=== PATIENT | male | born 1955 | race Two or more races ===

== ENCOUNTER 2019-10-14 17:34 | Inpatient (IN) | payer SELFPAY ==
[~2019-10-14] VITALS: Ht 175.3 cm; Wt 69.9 kg
[2019-10-14] MEDS ORDERED: IV NORMAL SALINE 1000ML BAG 1,000 ML IV SCH (18:57)
[2019-10-14] MEDS ORDERED: PANTOPRAZOLE IV PUSH 40 MG VIAL. IVP ONE (19:00)
[2019-10-14] MEDS ORDERED: ONDANSETRON PF 4 MG/2 ML VIAL. IVP ONE (19:00)
[2019-10-14] MEDS ORDERED: fentaNYL PF VIAL 100 MCG/2 ML VIAL IVP ONE (19:00)
--- NOTE | 2019-10-14 19:06 | PHYS DOC ---
Past Medical History Past Medical History: No Pertinent History Past Surgical History: No Surgical History Smoking Status: Current Every Day Smoker Additional Information: 03/08 PPD Alcohol Use: Sober Additional Information: 2 WEEKS AGO STOPPED DRINKING 16-20 BEERS A DAY General Adult EDM: Chief Complaint: ABDOMINAL PAIN HPI: HPI: Patient is a 64 year old male who presents with daughter who states that he just moved in with her on this past . She states that she has not seen him for a while and he looks very skinny. She states that he does not ever go to the doctors and she asked him today to bring him to the hospital because he hurts all over and has abdominal pain. She states that he is also having shortness of air with exertion. Patient states when he is walking up her stairs or with walking to the car he was short of air. He drinks 15 or more tall boys a day. He has done this since he was 19 years old. He is a smoker and he does use drugs. Daughter states that she thinks he does cocaine and marijuana. Patient states he has a lack of appetite and has generalized body aches. When asked the quality of his abdominal pain he states " it just hurts". Patient rates his overall pain a 9 out of 10. He denies vomiting but states he is nauseous, headache, dizziness, syncope, chest pain, vision changes, numbness or tingling, focal weakness. He is ambulatory with a steady gait. Review of Systems: Review of Systems: Constitutional: Denies fever or chills. [] Eyes: Denies change in visual acuity. [] HENT: Denies nasal congestion or sore throat. [] Respiratory: Denies cough. +shortness of breath. [] Cardiovascular: Denies chest pain or edema. [] GI: generalized abdominal pain, nausea, vomiting, denies bloody stools or diarrhea. [] : Denies dysuria. [] Musculoskeletal: Denies back pain or joint pain. [] Integument: Denies rash. [] Neurologic: Denies headache, focal weakness or sensory changes. [] Endocrine: Denies polyuria or polydipsia. [] Lymphatic: Denies swollen glands. [] Psychiatric: Denies depression or anxiety. ETOH abuse [] Heart Score: Risk Factors: Risk Factors: DM, Current or recent (<one month) smoker, HTN, HLP, family history of CAD, obesity. Risk Scores: Score 0 - 3: 2.5% MACE over next 6 weeks - Discharge Home Score 4 - 6: 20.3% MACE over next 6 weeks - Admit for Clinical Observation Score 7 - 10: 72.7% MACE over next 6 weeks - Early Invasive Strategies Physical Exam: PE: Constitutional: Well developed, well nourished, no acute distress, non-toxic appearance. [] HENT: Normocephalic, atraumatic, bilateral external ears normal, oropharynx moist, no oral exudates, nose normal. [] Eyes: PERRLA, EOMI, conjunctiva yellow, no discharge. [] Neck: Normal range of motion, no tenderness, supple, no stridor. [] Cardiovascular:Heart rate regular rhythm, no murmur [] Lungs & Thorax: Bilateral breath sounds clear to auscultation [] Abdomen: Bowel sounds normal, tight, no tenderness, no masses, no pulsatile masses. [] Skin: Warm, dry, no erythema, no rash. [] Back: No tenderness, no CVA tenderness. [] Extremities: No tenderness, no cyanosis, no clubbing, ROM intact, no edema. [] Neurologic: Alert and oriented X 3, normal motor function, normal sensory function, no focal deficits noted. [] Psychologic: Affect normal, judgement normal, mood normal. [] Current Patient Data: Vital Signs: Vital Signs Date Time Temp Pulse Resp B/P (MAP) Pulse Ox O2 Delivery O2 Flow Rate FiO2 10/14/19 18:20 98.1 85 20 110/77 (88) 100 98.1 EKG: EK and read by Dr Whitney as Sinus Rhythm and no STEMI[] Radiology/Procedures: Radiology/Procedures: [][facility] [address] [place] [address] IMAGING REPORT Signed PATIENT: MELLO HARGROVE ACCOUNT: [id number] : 1955 LOCATION: ER AGE: 64 SEX: M EXAM STATUS: REG ER ORD. PHYSICIAN: JESICA MENJIVAR APRN REASON: ABD PAIN, ETOH ABUSE PROCEDURE: CT ABD PELV W/ IV CONTRST ONLY EXAM: CT Abdomen and Pelvis with IV contrast CLINICAL HISTORY: ABD PAIN, ETOH ABUSE COMPARISON: none TECHNIQUE: Helical CT of the abdomen and pelvis was performed following the administration of IV contrast. Axial, coronal and sagittal reformatted images were generated. ---PQRS compliance statement - One or more of the following individualized dose reduction techniques were utilized for this study: 1. Automated exposure control 2. Adjustment of the mA and/or kV according to patient size 3. Use of iterative reconstruction technique--- FINDINGS: Lower chest: Linear opacities in the lower lobes likely scarring/atelectasis. Abdomen and pelvis: Liver and biliary system: Relative hepatic hypoattenuation likely fatty liver. A 1.3 x 0.6 cm left hepatic lobe lesion (image 19) is seen. Liver is mildly nodular in contour with enlargement of the left hepatic lobe consistent with hepatic cirrhosis. Gallbladder is grossly unremarkable. No biliary ductal dilatation. Spleen: Spleen is enlarged measuring approximately 14.5 cm in length. No focal splenic lesion. Pancreas: Unremarkable Adrenal glands: Unremarkable Kidneys: Symmetric nephrograms. No definite renal lesion is seen although there is intermittent renal cortical/thinning scarring in the right kidney. There is marked left hydronephrosis/hydroureter and mild right hydronephrosis/hydroureter. Lymph nodes/retroperitoneum: No abdominal or pelvic lymphadenopathy however prominent retroperitoneal lymph nodes are seen. Mildly prominent upper abdominal collaterals are suggested. Vessels: Atherosclerotic calcifications of aorta are seen, which is normal in caliber. Bowel/Peritoneal cavity: Moderate colonic stool content. No small or large bowel dilatation. No bowel obstruction. No abdominal or pelvic ascites. Abdominal wall: Fat-containing periumbilical hernia with mild associated infiltration. Bladder: The bladder is markedly distended, measuring approximately 18.7 x 13 x 23.5 cm (transverse by AP by craniocaudal). Mild irregularity at the inferior bladder likely from enlarged prostate measuring approximately 5.2 cm in transverse dimension. Bones: Trace anterolisthesis of L4 on L5. Multilevel degenerative changes of spine are seen. IMPRESSION: The bladder is markedly enlarged measuring up to 23.5 cm in craniocaudal dimension. This can be correlated for possible voluntary or involuntary causes of urinary retention. Additionally there is bilateral hydronephrosis, severe on the left. Small fat-containing periumbilical hernia is seen. Mild associated infiltration may suggest symptomatic hernia. Liver is cirrhotic in morphology with changes of portal hypertension including splenomegaly. Electronically signed by: Chris Solis MD (10/14/2019 8:13 PM) [facility] DICTATED and SIGNED BY: CHRIS SOLIS MD DATE: 10/14/192012 [facility] [address] [place] [address] IMAGING REPORT Signed PATIENT: MELLO HARGROVE ACCOUNT: [id number] : 1955 LOCATION: ER AGE: 64 SEX: M EXAM STATUS: REG ER ORD. PHYSICIAN: JESICA MENJIVAR APRN REASON: SOA PROCEDURE: PORTABLE CHEST 1V Exam: Chest one view INDICATION: Short of air TECHNIQUE: Frontal view of the chest Comparisons: None FINDINGS: The cardiomediastinal silhouette and pulmonary vessels are within normal limits. The lung and pleural spaces are clear. IMPRESSION: No acute cardiopulmonary process. Electronically signed by: Cass Saucedo MD (10/14/2019 7:22 PM) [id number] DICTATED and SIGNED BY: CASS SAUCEDO MD DATE: 10/14/191921 Course & Med Decision Making: Course & Med Decision Making Pertinent Labs and Imaging studies reviewed. (See chart for details) See HPI. Abdomen is tight but nontender with palpation. He does have an umbilical hernia that is hard and I cannot reduce. Lungs are clear in upper lobes but diminished in lower lobes. He is afebrile. He does seem to have tremors when moving his extremities only. He is alert and oriented x4. Speaks in full clear sentences. He does have yellowing of the sclera of his eyes. Patient states his last drink was this past . No extremity edema. Patient has pancreatitis and urinary tract infection. Given Rocephin IV. He is admitted to the hospital by Dr. Rocha. [] Marya Disclaimer: Marya Disclaimer: This electronic medical record was generated, in whole or in part, using a voice recognition dictation system. Departure Departure Impression: Primary Impression: Pancreatitis Qualified Codes: K85.20 - Alcohol induced acute pancreatitis without necrosis or infection Additional Impression: UTI (urinary tract infection) Qualified Codes: N30.00 - Acute cystitis without hematuria Disposition: ADMITTED INPATIENT Admitting Physician: SUZAN Condition: STABLE Referrals: NO PCP (PCP) Justicifation of Admission Dx: Justifications for Admission: Justification of Admission Dx: Yes Comments: pancreatitis JESICA MENJIVAR APRN Oct 14, 2019 19:06
[2019-10-14 19:15] LABS: BASO # 0.1 x10^3/uL (0.0-0.2); BASO % 1 % (0-3); EOS # 0.2 x10^3/uL (0.0-0.7); EOS % 2 % (0-3); HEMATOCRIT 42.1 % (39.0-53.0); HEMOGLOBIN 14.3 g/dL (13.0-17.5); LYMPH # 1.4 x10^3/uL (1.0-4.8); LYMPH % 12 % (24-48); MEAN CORPUSCULAR HEMOGLOBIN 32 pg (25-35); MEAN CORPUSCULAR HGB CONC 34 g/dL (31-37); MEAN CORPUSCULAR VOLUME 94 fL (79-100); MONO # 1.3 x10^3/uL (0.0-1.1); MONO % 12 % (0-9); NEUT # 8.2 x10^3/uL (1.8-7.7); NEUT % 73 % (31-73); PLATELET COUNT 113 x10^3/uL (140-400); RED BLOOD COUNT 4.46 x10^6/uL (4.30-5.70); RED CELL DISTRIBUTION WIDTH 15.7 % (11.5-14.5); WHITE BLOOD COUNT 11.2 x10^3/uL (4.0-11.0)
[2019-10-14 19:24] LABS: PROTHROMBIN TIME PATIENT 15.5 SEC (11.7-14.0)
--- NOTE | 2019-10-14 19:24 | RAD ---
Exam: Chest one view INDICATION: Short of air TECHNIQUE: Frontal view of the chest Comparisons: None FINDINGS: The cardiomediastinal silhouette and pulmonary vessels are within normal limits. The lung and pleural spaces are clear. IMPRESSION: No acute cardiopulmonary process. Electronically signed by: Cass Herring MD (10/14/2019 7:22 PM) [id number]
[2019-10-14 19:29] LABS: CALCIUM 8.9 mg/dL (8.5-10.1); GFR 75.7; POTASSIUM 5.4 mmol/L (3.5-5.1)
[2019-10-14 19:34] LABS: ALBUMIN 2.5 g/dL (3.4-5.0); ALBUMIN/GLOBULIN RATIO 0.5 (1.0-1.7); TOTAL BILIRUBIN 1.5 mg/dL (0.2-1.0); TOTAL PROTEIN 7.4 g/dL (6.4-8.2)
[2019-10-14] MEDS ORDERED: IOHEXOL 300 MG/ML 100ML VIAL. IV ONE (19:45)
[2019-10-14] MEDS ORDERED: CONTRAST GIVEN. MC PRN (20:00)
[2019-10-14 20:15] LABS: BILIRUBIN,URINE NEGATIVE (NEG); CLARITY,URINE CLOUDY; COLOR,URINE YELLOW; NITRITE,URINE NEGATIVE (NEG); PROTEIN,URINE NEGATIVE (NEG-TRACE); UROBILINOGEN,URINE 0.2 mg/dL (0.2 mg/dL)
--- NOTE | 2019-10-14 20:16 | RAD ---
EXAM: CT Abdomen and Pelvis with IV contrast CLINICAL HISTORY: ABD PAIN, ETOH ABUSE COMPARISON: none TECHNIQUE: Helical CT of the abdomen and pelvis was performed following the administration of IV contrast. Axial, coronal and sagittal reformatted images were generated. ---PQRS compliance statement - One or more of the following individualized dose reduction techniques were utilized for this study: 1. Automated exposure control 2. Adjustment of the mA and/or kV according to patient size 3. Use of iterative reconstruction technique--- FINDINGS: Lower chest: Linear opacities in the lower lobes likely scarring/atelectasis. Abdomen and pelvis: Liver and biliary system: Relative hepatic hypoattenuation likely fatty liver. A 1.3 x 0.6 cm left hepatic lobe lesion (image 19) is seen. Liver is mildly nodular in contour with enlargement of the left hepatic lobe consistent with hepatic cirrhosis. Gallbladder is grossly unremarkable. No biliary ductal dilatation. Spleen: Spleen is enlarged measuring approximately 14.5 cm in length. No focal splenic lesion. Pancreas: Unremarkable Adrenal glands: Unremarkable Kidneys: Symmetric nephrograms. No definite renal lesion is seen although there is intermittent renal cortical/thinning scarring in the right kidney. There is marked left hydronephrosis/hydroureter and mild right hydronephrosis/hydroureter. Lymph nodes/retroperitoneum: No abdominal or pelvic lymphadenopathy however prominent retroperitoneal lymph nodes are seen. Mildly prominent upper abdominal collaterals are suggested. Vessels: Atherosclerotic calcifications of aorta are seen, which is normal in caliber. Bowel/Peritoneal cavity: Moderate colonic stool content. No small or large bowel dilatation. No bowel obstruction. No abdominal or pelvic ascites. Abdominal wall: Fat-containing periumbilical hernia with mild associated infiltration. Bladder: The bladder is markedly distended, measuring approximately 18.7 x 13 x 23.5 cm (transverse by AP by craniocaudal). Mild irregularity at the inferior bladder likely from enlarged prostate measuring approximately 5.2 cm in transverse dimension. Bones: Trace anterolisthesis of L4 on L5. Multilevel degenerative changes of spine are seen. IMPRESSION: The bladder is markedly enlarged measuring up to 23.5 cm in craniocaudal dimension. This can be correlated for possible voluntary or involuntary causes of urinary retention. Additionally there is bilateral hydronephrosis, severe on the left. Small fat-containing periumbilical hernia is seen. Mild associated infiltration may suggest symptomatic hernia. Liver is cirrhotic in morphology with changes of portal hypertension including splenomegaly. Electronically signed by: Chris Rivera MD (10/14/2019 8:13 PM) [facility]AN
[2019-10-14 20:23] LABS: BACTERIA,URINE MANY /HPF (0-FEW); RBC,URINE 0 /HPF (0-2); SQUAMOUS EPITHELIAL CELL,UR FEW /LPF; WBC,URINE TNTC /HPF (0-4)
[2019-10-14 20:24] LABS: YEAST,URINE PRESENT /HPF
[2019-10-14 20:27] LABS: AMPHETAMINE/METHAMPHETAMINE NEG (NEG); BARBITURATES NEG (NEG); BENZODIAZEPINES NEG (NEG); CANNABINOIDS NEG (NEG); COCAINE NEG (NEG); METHADONE NEG (NEG); OPIATES NEG (NEG); PHENCYCLIDINE NEG (NEG)
[2019-10-14] MEDS ORDERED: cefTRIAXone IV Push 1 GM VIAL. IVP ONE (20:45)
[2019-10-14] MEDS ORDERED: ONDANSETRON PF 4 MG/2 ML VIAL. IV PRN (21:45)
[2019-10-14] MEDS: fentaNYL PF VIAL 100 MCG/2 ML VIAL IV PRN ×2 (21:55→22:52)
[2019-10-14] MEDS: IV NORMAL SALINE 1000ML BAG 1,000 ML IV SCH (21:56)
--- NOTE | 2019-10-14 23:45 | NUR ---
The patient, MELLO HARGROVE, 64 y/o, M admitted by VICKY DONALDSON III, DO, was given written information regarding hospital policies, unit procedures and contact persons. patient transferred to room 256 at this time. patient was transferred by ED staff member on an ED bed. Valuables were checked and noted. Patient denies any needs at this time. Dr. De Los Santos called due to COVID symptoms and recent travel from [place], orders to transfer to [address] [place] [address] and test for COVID.
[2019-10-15] VITALS: BP 114/81
[2019-10-15 03:00] VITALS: BP 99/71
[2019-10-15] MEDS: IV NORMAL SALINE 1000ML BAG 1,000 ML IV SCH (04:29)
--- NOTE | 2019-10-15 04:44 | EKG ---
[facility] [address] [place] [address] Test Date: 2019-10-14 Test Time: 19:04:13 Pat Name: MELLO HARGROVE Department: Room: Gender: M [employer]ician: : 1955 Requested By: JESICA MENJIVAR Order Number: [id number] Reading MD: Measurements Intervals [place] Rate: 78 P: 50 [place]: 150 QRS: 1 QRSD: 70 T: 7 QT: 372 QTc: 428 Interpretive Statements SINUS RHYTHM LOW LIMB LEAD VOLTAGE NO SPECIFIC ECG ABNORMALITIES RI6.01 No previous ECG available for comparison
[2019-10-15 07:00] VITALS: BP 127/85
[2019-10-15] MEDS ORDERED: CIPR500T94 PO (08:50)
--- NOTE | 2019-10-15 08:55 | PDOC1 ---
History and Physical Date of Admission Date of Admission DATE: 10/15/19 TIME: 08:50 Source Source: Chart review, Patient History of Present Illness History of Present Illness Mr. Sorensen, is a 64 year old male admit with leg pain and abd pain, new weakness over days. He has severe pain last night, and he hurts all over and has abdominal pain. pain was 9/10 last night, better this AM. maybe 5/10 he was short of breath last night, better this AM he usualy drinks about 20 beers a day, stopped recently due to abd pain,. He is a smoker and may use drugs, UDS was negative, . Daughter told the ER, that she thinks he does cocaine and marijuana. Patient states he has a lack of appetite and has generalized body aches. he could walk last night and is better this AM Past Medical History Cardiovascular: No pertinent hx Pulmonary: No pertinent hx GI: No pertinent hx Psych: Other (alcohol abuse) Renal/: No pertinent hx Endocrine: No pertinent hx Past Surgical History Past Surgical History: No pertinent history Family History Family History: No Significant Social History Smoke: No ALCOHOL: heavy Drugs: None Current Problem List Problem List Problems Medical Problems: (1) Pancreatitis Status: Acute (2) UTI (urinary tract infection) Status: Acute Current Medications Current Medications Current Medications Sodium Chloride 1,000 ml @ 1,000 mls/hr Q1H IV Last administered on 10/14/19 19:35; Start 10/14/19 at 18:57; Stop 10/14/19 at 19:56; Status DC Fentanyl Citrate (Fentanyl 2ml Vial) 50 mcg 1X ONCE IVP Last administered on 10/14/19at 19:36; Start 10/14/19 at 19:00; Stop 10/14/19 at 19:27; Status DC Ondansetron HCl (Zofran) 4 mg 1X ONCE IVP Last administered on 10/14/19at 19:36; Start 10/14/19 at 19:00; Stop 10/14/19 at 19:27; Status DC Pantoprazole Sodium (PROTONIX VIAL for IV PUSH) 40 mg 1X ONCE IVP Last administered on 10/14/19at 19:35; Start 10/14/19 at 19:00; Stop 10/14/19 at 19:27; Status DC Iohexol (Omnipaque 300 Mg/ml) 75 ml 1X ONCE IV Last administered on 10/14/19at 19:53; Start 10/14/19 at 19:45; Stop 10/14/19 at 19:47; Status DC Info (CONTRAST GIVEN -- Rx MONITORING) 1 each PRN DAILY PRN MC SEE COMMENTS; Start 10/14/19 at 20:00; Stop 10/16/19 at 19:59 Ceftriaxone Sodium (Rocephin) 1 gm 1X ONCE IVP Last administered on 10/14/19at 20:51; Start 10/14/19 at 20:45; Stop 10/14/19 at 20:46; Status DC Ondansetron HCl (Zofran) 4 mg PRN Q8HRS PRN IV NAUSEA/VOMITING; Start 10/14/19 at 21:45; Stop 10/15/19 at 21:44 Fentanyl Citrate (Fentanyl 2ml Vial) 50 mcg PRN Q1HR PRN IV PAIN Last administered on 10/14/19at 22:52; Start 10/14/19 at 21:45; Stop 10/15/19 at 21:44 Sodium Chloride 1,000 ml @ 150 mls/hr Q6H40M IV Last administered on 10/15/19at 04:29; Start 10/14/19 at 21:45; Stop 10/15/19 at 21:44 Allergies Allergies: Coded Allergies: No Known Drug Allergies (Unverified , 10/14/19) ROS General: No: Chills, Night Sweats, Fatigue, Malaise, Appetite, Other PSYCHOLOGICAL ROS: No: Anxiety, Behavioral Disorder, Concentration difficultie, Decreased libido, Depression, Disorientation, Hallucinations, Hostility, Irritablity, Memory difficulties, Mood Swings, Obsessive thoughts, Physical abuse, Sexual abuse, Sleep disturbances, Suicidal ideation, Other Eyes: No Blurry vision, No Decreased vision, No Double vision, No Dry eyes, No Excessive tearing, No Eye Pain, No Itchy Eyes, No Loss of vision, No Photophobia, No Scotomata, No Uses contacts, No Uses glasses, No Other Respiratory: No: Cough, Hemoptysis, Orthopnea, Pleuritic Pain, Shortness of breath, SOB with excertion, Sputum Changes, Stridor, Tachypnea, Wheezing, Other Cardiovascular: No Chest Pain, No Palpitations, No Orthopnea, No Paroxysmal Noc. Dyspnea, No Edema, No Lt Headedness, No Other Gastrointestinal: Yes Nausea, Yes Abdominal Pain Genitourinary: No Dysuria, No Frequency, No Incontinence, No Hematuria, No Retention, No Discharge, No Urgency, No Pain, No Flank Pain, No Other, No , No , No , No , No , No , No Musculoskeletal: Yes Joint Pain, Yes Joint Stiffness Neurological: No Behavorial Changes, No Bowel/Bladder ControlChng, No Confusion, No Dizziness, No Gait Disturbance, No Headaches, No Impaired Coord/balance, No Memory Loss, No Numbness/Tingling, No Seizures, No Speech Problems, No Tremors, No Visual Changes, No Weakness, No Other Skin: Yes Dry Skin; No Eczema, No Hair Changes, No Lumps, No Mole Changes, No Mottling, No Nail Changes, No Pruritus, No Rash, No Skin Lesion Changes, No Other, No Acne Physical Exam General: Alert, Cooperative, No acute distress HEENT: Atraumatic, PERRLA Lungs: Clear to auscultation Heart: RRR Abdomen: Normal bowel sounds, Other (firm hernnia vental, surg consult able to reduce.) Extremities: No edema, Normal pulses Skin: No rashes Neuro: Sensation intact Psych/Mental Status: Mental status NL, Mood NL Vitals Vitals Vital Signs Date Time Temp Pulse Resp B/P (MAP) Pulse Ox O2 Delivery O2 Flow Rate FiO2 10/15/19 03:00 99.9 74 22 99/71 (80) 96 Room Air 99.9 Labs Labs Laboratory Tests Test 10/14/19 18:50 10/14/19 20:05 White Blood Count 11.2 x10^3/uL (4.0-11.0) Red Blood Count 4.46 x10^6/uL (4.30-5.70) Hemoglobin 14.3 g/dL (13.0-17.5) Hematocrit 42.1 % (39.0-53.0) Mean Corpuscular Volume 94 fL (79-100) Mean Corpuscular Hemoglobin 32 pg (25-35) Mean Corpuscular Hemoglobin Concent 34 g/dL (31-37) Red Cell Distribution Width 15.7 % (11.5-14.5) Platelet Count 113 x10^3/uL (140-400) Neutrophils (%) (Auto) 73 % (31-73) Lymphocytes (%) (Auto) 12 % (24-48) Monocytes (%) (Auto) 12 % (0-9) Eosinophils (%) (Auto) 2 % (0-3) Basophils (%) (Auto) 1 % (0-3) Neutrophils # (Auto) 8.2 x10^3/uL (1.8-7.7) Lymphocytes # (Auto) 1.4 x10^3/uL (1.0-4.8) Monocytes # (Auto) 1.3 x10^3/uL (0.0-1.1) Eosinophils # (Auto) 0.2 x10^3/uL (0.0-0.7) Basophils # (Auto) 0.1 x10^3/uL (0.0-0.2) Prothrombin Time 15.5 SEC (11.7-14.0) Prothromb Time International Ratio 1.3 (0.8-1.1) Sodium Level 137 mmol/L (136-145) Potassium Level 5.4 mmol/L (3.5-5.1) Chloride Level 102 mmol/L (98-107) Carbon Dioxide Level 31 mmol/L (21-32) Anion Gap 4 (6-14) Blood Urea Nitrogen 10 mg/dL (8-26) Creatinine 1.0 mg/dL (0.7-1.3) Estimated GFR (Cockcroft-Gault) 75.7 BUN/Creatinine Ratio 10 (6-20) Glucose Level 90 mg/dL (70-99) Calcium Level 8.9 mg/dL (8.5-10.1) Total Bilirubin 1.5 mg/dL (0.2-1.0) Aspartate Amino Transf (AST/SGOT) 52 U/L (15-37) Alanine Aminotransferase (ALT/SGPT) 58 U/L (16-63) Alkaline Phosphatase 123 U/L (46-116) Troponin I Quantitative < 0.017 ng/mL (0.000-0.055) Total Protein 7.4 g/dL (6.4-8.2) Albumin 2.5 g/dL (3.4-5.0) Albumin/Globulin Ratio 0.5 (1.0-1.7) Lipase 567 U/L (73-393) Urine Collection Type Unknown Urine Color Yellow Urine Clarity Cloudy Urine pH 6.0 (<5.0-8.0) Urine Specific [place] <=1.005 (1.000-1.030) Urine Protein Negative mg/dL (NEG-TRACE) Urine Glucose (UA) Negative mg/dL (NEG) Urine Ketones (Stick) Negative mg/dL (NEG) Urine Blood Trace (NEG) Urine Nitrite Negative (NEG) Urine Bilirubin Negative (NEG) Urine Urobilinogen Dipstick 0.2 mg/dL (0.2 mg/dL) Urine Leukocyte Esterase Large (NEG) Urine RBC 0 /HPF (0-2) Urine WBC Tntc /HPF (0-4) Urine Squamous Epithelial Cells Few /LPF Urine Bacteria Many /HPF (0-FEW) Urine Mucus Slight /LPF Urine Yeast Present /HPF Urine Opiates Screen Neg (NEG) Urine Methadone Screen Neg (NEG) Urine Barbiturates Neg (NEG) Urine Phencyclidine Screen Neg (NEG) Urine Amphetamine/Methamphetamine Neg (NEG) Urine Benzodiazepines Screen Neg (NEG) Urine Cocaine Screen Neg (NEG) Urine Cannabinoids Screen Neg (NEG) Urine Ethyl Alcohol Neg (NEG) Laboratory Tests Test 10/14/19 18:50 10/14/19 20:05 White Blood Count 11.2 x10^3/uL (4.0-11.0) Red Blood Count 4.46 x10^6/uL (4.30-5.70) Hemoglobin 14.3 g/dL (13.0-17.5) Hematocrit 42.1 % (39.0-53.0) Mean Corpuscular Volume 94 fL (79-100) Mean Corpuscular Hemoglobin 32 pg (25-35) Mean Corpuscular Hemoglobin Concent 34 g/dL (31-37) Red Cell Distribution Width 15.7 % (11.5-14.5) Platelet Count 113 x10^3/uL (140-400) Neutrophils (%) (Auto) 73 % (31-73) Lymphocytes (%) (Auto) 12 % (24-48) Monocytes (%) (Auto) 12 % (0-9) Eosinophils (%) (Auto) 2 % (0-3) Basophils (%) (Auto) 1 % (0-3) Neutrophils # (Auto) 8.2 x10^3/uL (1.8-7.7) Lymphocytes # (Auto) 1.4 x10^3/uL (1.0-4.8) Monocytes # (Auto) 1.3 x10^3/uL (0.0-1.1) Eosinophils # (Auto) 0.2 x10^3/uL (0.0-0.7) Basophils # (Auto) 0.1 x10^3/uL (0.0-0.2) Prothrombin Time 15.5 SEC (11.7-14.0) Prothromb Time International Ratio 1.3 (0.8-1.1) Sodium Level 137 mmol/L (136-145) Potassium Level 5.4 mmol/L (3.5-5.1) Chloride Level 102 mmol/L (98-107) Carbon Dioxide Level 31 mmol/L (21-32) Anion Gap 4 (6-14) Blood Urea Nitrogen 10 mg/dL (8-26) Creatinine 1.0 mg/dL (0.7-1.3) Estimated GFR (Cockcroft-Gault) 75.7 BUN/Creatinine Ratio 10 (6-20) Glucose Level 90 mg/dL (70-99) Calcium Level 8.9 mg/dL (8.5-10.1) Total Bilirubin 1.5 mg/dL (0.2-1.0) Aspartate Amino Transf (AST/SGOT) 52 U/L (15-37) Alanine Aminotransferase (ALT/SGPT) 58 U/L (16-63) Alkaline Phosphatase 123 U/L (46-116) Troponin I Quantitative < 0.017 ng/mL (0.000-0.055) Total Protein 7.4 g/dL (6.4-8.2) Albumin 2.5 g/dL (3.4-5.0) Albumin/Globulin Ratio 0.5 (1.0-1.7) Lipase 567 U/L (73-393) Urine Collection Type Unknown Urine Color Yellow Urine Clarity Cloudy Urine pH 6.0 (<5.0-8.0) Urine Specific [place] <=1.005 (1.000-1.030) Urine Protein Negative mg/dL (NEG-TRACE) Urine Glucose (UA) Negative mg/dL (NEG) Urine Ketones (Stick) Negative mg/dL (NEG) Urine Blood Trace (NEG) Urine Nitrite Negative (NEG) Urine Bilirubin Negative (NEG) Urine Urobilinogen Dipstick 0.2 mg/dL (0.2 mg/dL) Urine Leukocyte Esterase Large (NEG) Urine RBC 0 /HPF (0-2) Urine WBC Tntc /HPF (0-4) Urine Squamous Epithelial Cells Few /LPF Urine Bacteria Many /HPF (0-FEW) Urine Mucus Slight /LPF Urine Yeast Present /HPF Urine Opiates Screen Neg (NEG) Urine Methadone Screen Neg (NEG) Urine Barbiturates Neg (NEG) Urine Phencyclidine Screen Neg (NEG) Urine Amphetamine/Methamphetamine Neg (NEG) Urine Benzodiazepines Screen Neg (NEG) Urine Cocaine Screen Neg (NEG) Urine Cannabinoids Screen Neg (NEG) Urine Ethyl Alcohol Neg (NEG) VTE Prophylaxis Ordered VTE Prophylaxis Devices: No VTE Pharmacological Prophylaxi: No Assessment/Plan Assessment/Plan acute abdominal pain, acute on chronic alcoholic pancreatitis, 45 years of alcohol abuse disorder, has now quit due to pain UTI, sepsis admit for R/o COVID to [facility] covid unit, pt seen in full PPE felt better in AM, no hypoxia, will DC [place] TATO KUMAR MD Oct 15, 2019 08:55
--- NOTE | 2019-10-15 08:56 | PDOC2 ---
CONSULT Date of Consult Date of Consult DATE: 10/15/19 TIME: 08:49 Reason for Consult Reason for Consult: abdominal pain Referring Physician Referring Physician: ER Identification/Chief Complaint Chief Complaint abdominal pain Source Source: Chart review, Patient History of Present Illness Reason for Visit: Welsh limited, family not present, in covid pending isolation Reports some abdominal pain this AM, no nausea or emesis From ER notes, weakness, SOA at home Heavy alcohol intake , ? drug use, + smoker Past Medical History Hepatobiliary: Cirrhosis Past Surgical History Past Surgical History: No pertinent history Family History Family History: Family History Unknown Social History <1 pack per day ALCOHOL: heavy Drugs: Other Current Problem List Problem List Problems Medical Problems: (1) Pancreatitis Status: Acute (2) UTI (urinary tract infection) Status: Acute Current Medications Current Medications Current Medications Sodium Chloride 1,000 ml @ 1,000 mls/hr Q1H IV Last administered on 10/14/19at 19:35; Start 10/14/19 at 18:57; Stop 10/14/19 at 19:56; Status DC Fentanyl Citrate (Fentanyl 2ml Vial) 50 mcg 1X ONCE IVP Last administered on 10/14/19at 19:36; Start 10/14/19 at 19:00; Stop 10/14/19 at 19:27; Status DC Ondansetron HCl (Zofran) 4 mg 1X ONCE IVP Last administered on 10/14/19at 19:36; Start 10/14/19 at 19:00; Stop 10/14/19 at 19:27; Status DC Pantoprazole Sodium (PROTONIX VIAL for IV PUSH) 40 mg 1X ONCE IVP Last administered on 10/14/19at 19:35; Start 10/14/19 at 19:00; Stop 10/14/19 at 19:27; Status DC Iohexol (Omnipaque 300 Mg/ml) 75 ml 1X ONCE IV Last administered on 10/14/19at 19:53; Start 10/14/19 at 19:45; Stop 10/14/19 at 19:47; Status DC Info (CONTRAST GIVEN -- Rx MONITORING) 1 each PRN DAILY PRN MC SEE COMMENTS; Start 10/14/19 at 20:00; Stop 10/16/19 at 19:59 Ceftriaxone Sodium (Rocephin) 1 gm 1X ONCE IVP Last administered on 10/14/19at 20:51; Start 10/14/19 at 20:45; Stop 10/14/19 at 20:46; Status DC Ondansetron HCl (Zofran) 4 mg PRN Q8HRS PRN IV NAUSEA/VOMITING; Start 10/14/19 at 21:45; Stop 10/15/19 at 21:44 Fentanyl Citrate (Fentanyl 2ml Vial) 50 mcg PRN Q1HR PRN IV PAIN Last administered on 10/14/19at 22:52; Start 10/14/19 at 21:45; Stop 10/15/19 at 21:44 Sodium Chloride 1,000 ml @ 150 mls/hr Q6H40M IV Last administered on 10/15/19at 04:29; Start 10/14/19 at 21:45; Stop 10/15/19 at 21:44 Ceftriaxone Sodium (Rocephin) 1 gm Q24H IVP ; Start 10/15/19 at 09:00 Allergies Allergies: Coded Allergies: No Known Drug Allergies (Unverified , 10/14/19) ROS General: No: Chills, Other (fevers ) PSYCHOLOGICAL ROS: No: Anxiety, Depression Eyes: No Blurry vision, No Double vision HEENT: No: Heacaches, Sore Throat Hematological and Lymphatic: No: Bleeding Problems, Blood Clots Respiratory: YES: Shortness of breath; No: Cough Cardiovascular: No Chest Pain, No Palpitations Gastrointestinal: Yes Other (see hpi) Genitourinary: No Dysuria, No Hematuria Musculoskeletal: Yes Muscular Weakness; No Joint Pain Neurological: No Impaired Coord/balance, No Numbness/Tingling Skin: No Pruritus, No Rash Physical Exam General: Alert, Oriented X3, Cooperative HEENT: Atraumatic, PERRLA Lungs: Clear to auscultation, Normal air movement Heart: Regular rate, Normal S1, Normal S2 Abdomen: Soft, Other (mild ttp LUQ, umbilical--palpable hernia periumbilical, easily reducible ) Extremities: No clubbing, No cyanosis Skin: No rashes, No breakdown Neuro: Normal speech, Sensation intact Psych/Mental Status: Mental status NL, Mood NL MUSCULOSKELETAL: No deformity, No swelling Vitals VITALS Vital Signs Date Time Temp Pulse Resp B/P (MAP) Pulse Ox O2 Delivery O2 Flow Rate FiO2 10/15/19 03:00 99.9 74 22 99/71 (80) 96 Room Air 99.9 Labs Labs Laboratory Tests Test 10/14/19 18:50 10/14/19 20:05 White Blood Count 11.2 x10^3/uL (4.0-11.0) Red Blood Count 4.46 x10^6/uL (4.30-5.70) Hemoglobin 14.3 g/dL (13.0-17.5) Hematocrit 42.1 % (39.0-53.0) Mean Corpuscular Volume 94 fL (79-100) Mean Corpuscular Hemoglobin 32 pg (25-35) Mean Corpuscular Hemoglobin Concent 34 g/dL (31-37) Red Cell Distribution Width 15.7 % (11.5-14.5) Platelet Count 113 x10^3/uL (140-400) Neutrophils (%) (Auto) 73 % (31-73) Lymphocytes (%) (Auto) 12 % (24-48) Monocytes (%) (Auto) 12 % (0-9) Eosinophils (%) (Auto) 2 % (0-3) Basophils (%) (Auto) 1 % (0-3) Neutrophils # (Auto) 8.2 x10^3/uL (1.8-7.7) Lymphocytes # (Auto) 1.4 x10^3/uL (1.0-4.8) Monocytes # (Auto) 1.3 x10^3/uL (0.0-1.1) Eosinophils # (Auto) 0.2 x10^3/uL (0.0-0.7) Basophils # (Auto) 0.1 x10^3/uL (0.0-0.2) Prothrombin Time 15.5 SEC (11.7-14.0) Prothromb Time International Ratio 1.3 (0.8-1.1) Sodium Level 137 mmol/L (136-145) Potassium Level 5.4 mmol/L (3.5-5.1) Chloride Level 102 mmol/L (98-107) Carbon Dioxide Level 31 mmol/L (21-32) Anion Gap 4 (6-14) Blood Urea Nitrogen 10 mg/dL (8-26) Creatinine 1.0 mg/dL (0.7-1.3) Estimated GFR (Cockcroft-Gault) 75.7 BUN/Creatinine Ratio 10 (6-20) Glucose Level 90 mg/dL (70-99) Calcium Level 8.9 mg/dL (8.5-10.1) Total Bilirubin 1.5 mg/dL (0.2-1.0) Aspartate Amino Transf (AST/SGOT) 52 U/L (15-37) Alanine Aminotransferase (ALT/SGPT) 58 U/L (16-63) Alkaline Phosphatase 123 U/L (46-116) Troponin I Quantitative < 0.017 ng/mL (0.000-0.055) Total Protein 7.4 g/dL (6.4-8.2) Albumin 2.5 g/dL (3.4-5.0) Albumin/Globulin Ratio 0.5 (1.0-1.7) Lipase 567 U/L (73-393) Urine Collection Type Unknown Urine Color Yellow Urine Clarity Cloudy Urine pH 6.0 (<5.0-8.0) Urine Specific [place] <=1.005 (1.000-1.030) Urine Protein Negative mg/dL (NEG-TRACE) Urine Glucose (UA) Negative mg/dL (NEG) Urine Ketones (Stick) Negative mg/dL (NEG) Urine Blood Trace (NEG) Urine Nitrite Negative (NEG) Urine Bilirubin Negative (NEG) Urine Urobilinogen Dipstick 0.2 mg/dL (0.2 mg/dL) Urine Leukocyte Esterase Large (NEG) Urine RBC 0 /HPF (0-2) Urine WBC Tntc /HPF (0-4) Urine Squamous Epithelial Cells Few /LPF Urine Bacteria Many /HPF (0-FEW) Urine Mucus Slight /LPF Urine Yeast Present /HPF Urine Opiates Screen Neg (NEG) Urine Methadone Screen Neg (NEG) Urine Barbiturates Neg (NEG) Urine Phencyclidine Screen Neg (NEG) Urine Amphetamine/Methamphetamine Neg (NEG) Urine Benzodiazepines Screen Neg (NEG) Urine Cocaine Screen Neg (NEG) Urine Cannabinoids Screen Neg (NEG) Urine Ethyl Alcohol Neg (NEG) Laboratory Tests Test 10/14/19 18:50 10/14/19 20:05 White Blood Count 11.2 x10^3/uL (4.0-11.0) Red Blood Count 4.46 x10^6/uL (4.30-5.70) Hemoglobin 14.3 g/dL (13.0-17.5) Hematocrit 42.1 % (39.0-53.0) Mean Corpuscular Volume 94 fL (79-100) Mean Corpuscular Hemoglobin 32 pg (25-35) Mean Corpuscular Hemoglobin Concent 34 g/dL (31-37) Red Cell Distribution Width 15.7 % (11.5-14.5) Platelet Count 113 x10^3/uL (140-400) Neutrophils (%) (Auto) 73 % (31-73) Lymphocytes (%) (Auto) 12 % (24-48) Monocytes (%) (Auto) 12 % (0-9) Eosinophils (%) (Auto) 2 % (0-3) Basophils (%) (Auto) 1 % (0-3) Neutrophils # (Auto) 8.2 x10^3/uL (1.8-7.7) Lymphocytes # (Auto) 1.4 x10^3/uL (1.0-4.8) Monocytes # (Auto) 1.3 x10^3/uL (0.0-1.1) Eosinophils # (Auto) 0.2 x10^3/uL (0.0-0.7) Basophils # (Auto) 0.1 x10^3/uL (0.0-0.2) Prothrombin Time 15.5 SEC (11.7-14.0) Prothromb Time International Ratio 1.3 (0.8-1.1) Sodium Level 137 mmol/L (136-145) Potassium Level 5.4 mmol/L (3.5-5.1) Chloride Level 102 mmol/L (98-107) Carbon Dioxide Level 31 mmol/L (21-32) Anion Gap 4 (6-14) Blood Urea Nitrogen 10 mg/dL (8-26) Creatinine 1.0 mg/dL (0.7-1.3) Estimated GFR (Cockcroft-Gault) 75.7 BUN/Creatinine Ratio 10 (6-20) Glucose Level 90 mg/dL (70-99) Calcium Level 8.9 mg/dL (8.5-10.1) Total Bilirubin 1.5 mg/dL (0.2-1.0) Aspartate Amino Transf (AST/SGOT) 52 U/L (15-37) Alanine Aminotransferase (ALT/SGPT) 58 U/L (16-63) Alkaline Phosphatase 123 U/L (46-116) Troponin I Quantitative < 0.017 ng/mL (0.000-0.055) Total Protein 7.4 g/dL (6.4-8.2) Albumin 2.5 g/dL (3.4-5.0) Albumin/Globulin Ratio 0.5 (1.0-1.7) Lipase 567 U/L (73-393) Urine Collection Type Unknown Urine Color Yellow Urine Clarity Cloudy Urine pH 6.0 (<5.0-8.0) Urine Specific [place] <=1.005 (1.000-1.030) Urine Protein Negative mg/dL (NEG-TRACE) Urine Glucose (UA) Negative mg/dL (NEG) Urine Ketones (Stick) Negative mg/dL (NEG) Urine Blood Trace (NEG) Urine Nitrite Negative (NEG) Urine Bilirubin Negative (NEG) Urine Urobilinogen Dipstick 0.2 mg/dL (0.2 mg/dL) Urine Leukocyte Esterase Large (NEG) Urine RBC 0 /HPF (0-2) Urine WBC Tntc /HPF (0-4) Urine Squamous Epithelial Cells Few /LPF Urine Bacteria Many /HPF (0-FEW) Urine Mucus Slight /LPF Urine Yeast Present /HPF Urine Opiates Screen Neg (NEG) Urine Methadone Screen Neg (NEG) Urine Barbiturates Neg (NEG) Urine Phencyclidine Screen Neg (NEG) Urine Amphetamine/Methamphetamine Neg (NEG) Urine Benzodiazepines Screen Neg (NEG) Urine Cocaine Screen Neg (NEG) Urine Cannabinoids Screen Neg (NEG) Urine Ethyl Alcohol Neg (NEG) Assessment/Plan Assessment/Plan cirrhosis, portal HTN, pancreatitis fat containing hernia--able to reduce--with medical hx, tobacccoism would recommend no intervention for hernia 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
[2019-10-15] MEDS ORDERED: cefTRIAXone IV Push 1 GM VIAL. IVP SCH (09:00)
[2019-10-15] MEDS ORDERED: VITAMIN B12,B9,B6 COMPLEX 1 TABLET. PO SCH (10:00)
[2019-10-15 10:54] VITALS: BP 132/80
[2019-10-15] MEDS ORDERED: MULTIVIT INFUSN,ADULT 4,VIT K 10 ML, THIAMINE INJ 100 MG, FOLIC ACID INJ 1 MG in IV NOR... IV ONE (11:00)
--- NOTE | 2019-10-15 13:03 | NUR ---
Discharge Note: MAHENDRA HARGROVE [facility] Discharge instructions and discharge home medications reviewed with Patient and a copy given. All questions have been answered and understanding verbalized. The following instructions and handouts were given: patient visit report, medication infromation, education - in Occitan. Discontinued lines and drains: peripheral IV, tip intact. Patient discharged to home with self care via private vehicle. Patient left unit awake, in stable condition, with all personal belonings.
--- NOTE | 2019-10-15 17:19 | NUR ---
SW following. Spoke with RN and reviewed chart. Pt from home. Pt to discharge home today self-care. No SW needs per RN.
== END 2019-10-15 13:00 | disposition home or self-care (01) | DRG 871 ==
LOC: ER 17:34 → 2 SOUTH 20:44 → 6 SOUTH 10-15 01:39
PROVIDERS: ADMIT Internal Medicine; ATTEND Internal Medicine
DX: A41.9 Sepsis, unspecified organism (principal); K85.20 Alcohol induced acute pancreatitis without necrosis or infection; K76.6 Portal hypertension; K86.0 Alcohol-induced chronic pancreatitis; N13.6 Pyonephrosis; F10.10 Alcohol abuse, uncomplicated; F17.200 Nicotine dependence, unspecified, uncomplicated; K42.9 Umbilical hernia without obstruction or gangrene; K74.60 Unspecified cirrhosis of liver; Z20.828 Contact with and (suspected) exposure to other viral communicable diseases; Z79.899 Other long term (current) drug therapy
CPT/HCPCS: 36415; 71045; 74177; 80053; 80307; 81001; 83690; 84484; 85025; 85610; 87086; 93005; 96361; 96374; 96375; 96376; 99285; C9113; J0696; J2405; J3010; J3411; J3490; J7030; Q9967; G0378; U0003-CS

== ENCOUNTER 2019-11-16 00:44 | Inpatient (IN) | payer SELFPAY ==
[~2019-11-16] VITALS: Ht 177.8 cm; Wt 71.0 kg
[~2019-11-16 00:44] MED LIST: CIPR500T94 PO
--- NOTE | 2019-11-16 02:01 | PHYS DOC ---
Past Medical History Past Medical History: No Pertinent History Past Surgical History: No Surgical History Smoking Status: Current Every Day Smoker Alcohol Use: None General Adult EDM: Chief Complaint: ABDOMINAL PAIN HPI: HPI: Patient is a 64 year old male presents with a chief complaint of abdominal pain. Patient has had abdominal pain with nausea for a month. Patient states the symptoms got worse the last couple days. Over last couple days he has had a fever and chills. Patient's had nausea without significant vomiting. Patient has noted some hematuria in the past as well as pain that radiates from the abdomen to the back that is severe in severity currently and worse with palpation. Patient had a chronic cough as well. Review of Systems: Review of Systems: Constitutional: Complains of fever and chills Eyes: Denies change in visual acuity. [] HENT: Denies nasal congestion or sore throat. [] Respiratory: Complains of cough but no shortness of breath Cardiovascular: Denies chest pain or edema. [] GI: Complains of abdominal pain nausea but no vomiting or diarrhea : Complains of hematuria Musculoskeletal: Complains of back pain Integument: Denies rash. [] Neurologic: Denies headache, focal weakness or sensory changes. [] Endocrine: Denies polyuria or polydipsia. [] Lymphatic: Denies swollen glands. [] Psychiatric: Denies depression or anxiety. [] Heart Score: Risk Factors: Risk Factors: DM, Current or recent (<one month) smoker, HTN, HLP, family history of CAD, obesity. Risk Scores: Score 0 - 3: 2.5% MACE over next 6 weeks - Discharge Home Score 4 - 6: 20.3% MACE over next 6 weeks - Admit for Clinical Observation Score 7 - 10: 72.7% MACE over next 6 weeks - Early Invasive Strategies Allergies: Allergies: Allergies Coded Allergies Type Severity Reaction Last Updated Verified No Known Drug Allergies 10/14/19 No Physical Exam: PE: Constitutional: Well developed, mild distress HENT: Normocephalic, atraumatic, bilateral external ears normal, no trismus nose normal. [] Eyes: PERRLA, EOMI, conjunctiva normal, no discharge. [] Neck: Normal range of motion, no tenderness, supple, no stridor. [] Cardiovascular:Heart rate regular rhythm, peripheral pulses intact, cap refill brisk Lungs & Thorax: Diminished breath sounds bilaterally Abdomen: Abdomen soft with diffuse tenderness worse on the right side no guarding or rebound no pulsatile mass bladder feels distended Skin: Warm, dry, no erythema, no rash. [] Back: No tenderness, bilateral CVA tenderness Extremities: No tenderness, no cyanosis, no clubbing, ROM intact, no edema. [] Neurologic: Alert and oriented X 3, normal motor function, normal sensory function, no focal deficits noted. [] Psychologic: Affect normal, judgement normal, mood normal. [] Current Patient Data: Labs: Laboratory Tests Test 11/16/19 00:53 11/16/19 02:20 11/16/19 04:39 Urine Collection Type Unknown Unknown Urine Color Yellow Abril Urine Clarity Turbid Turbid Urine pH 6.5 6.5 Urine Specific [place] <=1.005 <=1.005 Urine Protein 30 mg/dL 100 mg/dL Urine Glucose (UA) Negative mg/dL Negative mg/dL Urine Ketones (Stick) Negative mg/dL Negative mg/dL Urine Blood Moderate Large Urine Nitrite Negative Negative Urine Bilirubin Negative Negative Urine Urobilinogen Dipstick 1.0 mg/dL 1.0 mg/dL Urine Leukocyte Esterase Large Large Urine RBC 6-10 /HPF 6-10 /HPF Urine WBC Tntc /HPF Tntc /HPF Urine Squamous Epithelial Cells None /LPF None /LPF Urine Bacteria Many /HPF Many /HPF Urine Yeast Present /HPF Present /HPF White Blood Count 11.5 x10^3/uL Red Blood Count 4.07 x10^6/uL Hemoglobin 12.5 g/dL Hematocrit 37.0 % Mean Corpuscular Volume 91 fL Mean Corpuscular Hemoglobin 31 pg Mean Corpuscular Hemoglobin Concent 34 g/dL Red Cell Distribution Width 14.2 % Platelet Count 169 x10^3/uL Neutrophils (%) (Auto) 82 % Lymphocytes (%) (Auto) 7 % Monocytes (%) (Auto) 9 % Eosinophils (%) (Auto) 2 % Basophils (%) (Auto) 1 % Neutrophils # (Auto) 9.4 x10^3/uL Lymphocytes # (Auto) 0.7 x10^3/uL Monocytes # (Auto) 1.1 x10^3/uL Eosinophils # (Auto) 0.2 x10^3/uL Basophils # (Auto) 0.1 x10^3/uL Prothrombin Time 15.4 SEC Prothromb Time International Ratio 1.3 Activated Partial Thromboplast Time 33 SEC Sodium Level 137 mmol/L Potassium Level 3.8 mmol/L Chloride Level 104 mmol/L Carbon Dioxide Level 27 mmol/L Anion Gap 6 Blood Urea Nitrogen 12 mg/dL Creatinine 1.2 mg/dL Estimated GFR (Cockcroft-Gault) 61.3 BUN/Creatinine Ratio 10 Glucose Level 160 mg/dL Lactic Acid Level 1.9 mmol/L Calcium Level 8.5 mg/dL Total Bilirubin 0.9 mg/dL Aspartate Amino Transf (AST/SGOT) 43 U/L Alanine Aminotransferase (ALT/SGPT) 35 U/L Alkaline Phosphatase 126 U/L Creatine Kinase 43 U/L Total Protein 7.4 g/dL Albumin 2.4 g/dL Albumin/Globulin Ratio 0.5 Amylase Level 76 U/L Lipase 292 U/L Procalcitonin < 0.10 ng/mL Current Medications Medications (Trade) Dose Ordered Sig/Natalie Route PRN Reason Start Time Stop Time Status Last Admin Dose Admin Acetaminophen (Tylenol) 1,000 mg 1X ONCE PO 11/16/19 02:30 11/16/19 02:31 DC 11/16/19 02:54 Ondansetron HCl (Zofran) 4 mg 1X ONCE IVP 11/16/19 02:30 11/16/19 02:31 DC 11/16/19 02:53 Sodium Chloride 1,000 ml @ 1,000 mls/hr 1X ONCE IV 11/16/19 02:30 11/16/19 03:29 DC 11/16/19 02:54 Morphine Sulfate (Morphine Sulfate) 4 mg 1X ONCE IV 11/16/19 02:30 11/16/19 02:31 DC 11/16/19 02:53 Piperacillin Sod/ Tazobactam Sod 3.375 gm/Sodium Chloride 50 ml @ 100 mls/hr 1X ONCE IV 11/16/19 06:00 11/16/19 06:29 Vital Signs: Vital Signs Date Time Temp Pulse Resp B/P (MAP) Pulse Ox O2 Delivery O2 Flow Rate FiO2 11/16/19 01:10 100.4 106 18 138/91 (107) 94 Room Air 100.4 EKG: EKG: [] Radiology/Procedures: Radiology/Procedures: [][facility] [address] [place] [address] IMAGING REPORT Signed PATIENT: MELLO HARGROVE ACCOUNT: [id number] : 1955 LOCATION: ER AGE: 64 SEX: M EXAM STATUS: REG ER ORD. PHYSICIAN: TONI CLARK MD REASON: FEVER, ABD PAIN PROCEDURE: CT ABDOMEN PELVIS WO CONTRAST PQRS Compliance Statement: One or more of the following individualized dose reduction techniques were utilized for this examination: 1. Automated exposure control 2. Adjustment of the mA and/or kV according to patient size 3. Use of iterative reconstruction technique CT ABDOMEN PELVIS WO CONTRAST Clinical Indication: Reason: FEVER, ABD PAIN / Comparison: CT abdomen and pelvis with contrast, October 14, 2019. Technique: Helical CT imaging of the abdomen and pelvis is performed without IV or oral contrast. Findings: Evaluation of solid organs and bowel is limited without oral and IV contrast, decreasing sensitivity for detection of pathology. Mild atelectasis or scarring posterior right lower lobe. Cardiac size normal. Cirrhotic liver. Stable splenomegaly. Cholelithiasis. The pancreas and adrenal glands are normal. Subcentimeter retroperitoneal lymph nodes. The abdominal aorta is normal caliber. There is bilateral hydroureteronephrosis, severe on the left. Left perinephric stranding. These findings are unchanged. Unchanged fat-containing periumbilical hernia. Induration of fat is unchanged. The stomach is unremarkable. There is no dilated small bowel. There is no colon wall thickening. The appendix is normal. There is marked distention of the urinary bladder which is unchanged. Prostate protrudes into the base of the urinary bladder, unchanged. Prostate is mildly enlarged. Mild urinary bladder wall thickening is unchanged. There is no pelvic free fluid. There is grade 1 anterolisthesis of L4 on L5. Tiny pelvic bone islands. IMPRESSION: 1. There is unchanged marked enlargement of the urinary bladder. Mild wall thickening may be due to chronic bladder outlet obstruction. 2. Unchanged severe left and mild right hydroureteronephrosis. Finding probably secondary to #1. 3. Prostatomegaly. 4. Hepatic cirrhosis. Stable splenomegaly. 5. Cholelithiasis. 6. Unchanged periumbilical hernia. Electronically signed by: Aramis Avila MD (11/16/2019 3:17 AM) [facility] DICTATED and SIGNED BY: ARAMIS AVILA MD DATE: 11/16/19 0317 [facility] [address] [place] [address] IMAGING REPORT Signed PATIENT: MELLO HARGROVE ACCOUNT: [id number] : 1955 LOCATION: ER AGE: 64 SEX: M EXAM STATUS: REG ER ORD. PHYSICIAN: TONI CLARK MD REASON: FEVER PROCEDURE: PORTABLE CHEST 1V PORTABLE CHEST 1V Clinical Indication: Reason: FEVER / Spl. Instructions: / History: Comparison: AP chest, October 14, 2019. Findings: Mildly tortuous thoracic aorta. The cardiomediastinal silhouette is normal. Lungs are clear. There is no pneumothorax. No pleural effusion is appreciated. No acute bone abnormality. Old left rib fractures. IMPRESSION: No acute cardiopulmonary process. Electronically signed by: Aramis Avila MD (11/16/2019 4:06 AM) [facility] DICTATED and SIGNED BY: ARAMIS AVILA MD DATE: 11/16/19 0406 Course & Med Decision Making: Course & Med Decision Making Pertinent Labs and Imaging studies reviewed. (See chart for details) [] 64-year-old male presents with abdominal pain and fever as well as nausea. Patient has a large distended bladder and 3.3 L were drained when a Mcmahon catheter was placed. Patient is given IV fluids and antibiotics. I discussed the case with the hospitalist who initially suggested transfer and I discussed the case with [facility] and Dr. Hudson states that since the catheter is and he does not need emergent transfer will get a handle it here with IV antibiotics. I re-paged the hospitalist and waiting to hear back. Care will be signed over to Dr. Muir with disposition pending Marya Disclaimer: Marya Disclaimer: This electronic medical record was generated, in whole or in part, using a voice recognition dictation system. Departure Departure Impression: Primary Impression: UTI (urinary tract infection) Additional Impressions: Bladder obstruction Abdominal pain Fever Disposition: ADMITTED INPATIENT Condition: IMPROVED Referrals: NO PCP (PCP) Justicifation of Admission Dx: Justifications for Admission: Justification of Admission Dx: Yes TONI CLARK MD Nov 16, 2019 02:01
[2019-11-16 02:06] LABS: BILIRUBIN,URINE NEGATIVE (NEG); CLARITY,URINE TURBID; COLOR,URINE YELLOW; NITRITE,URINE NEGATIVE (NEG); PH,URINE 6.5 (<5.0-8.0); PROTEIN,URINE 30 mg/dL (NEG-TRACE)
[2019-11-16 02:14] LABS: BACTERIA,URINE MANY /HPF (0-FEW); WBC,URINE TNTC /HPF (0-4); YEAST,URINE PRESENT /HPF
[2019-11-16] MEDS ORDERED: ACETAMINOPHEN 500 MG TABLET PO ONE (02:30)
[2019-11-16] MEDS ORDERED: IV NORMAL SALINE 1000ML BAG 1,000 ML IV ONE (02:30)
[2019-11-16] MEDS ORDERED: ONDANSETRON PF 4 MG/2 ML VIAL. IVP ONE (02:30)
[2019-11-16] MEDS ORDERED: MORPHINE SULFATE 4 MG/ML VIAL. IV ONE (02:30)
[2019-11-16 02:40] LABS: BASO # 0.1 x10^3/uL (0.0-0.2); BASO % 1 % (0-3); EOS # 0.2 x10^3/uL (0.0-0.7); EOS % 2 % (0-3); HEMOGLOBIN 12.5 g/dL (13.0-17.5); LYMPH # 0.7 x10^3/uL (1.0-4.8); LYMPH % 7 % (24-48); MEAN CORPUSCULAR HEMOGLOBIN 31 pg (25-35); MEAN CORPUSCULAR HGB CONC 34 g/dL (31-37); MEAN CORPUSCULAR VOLUME 91 fL (79-100); MONO # 1.1 x10^3/uL (0.0-1.1); MONO % 9 % (0-9); NEUT # 9.4 x10^3/uL (1.8-7.7); NEUT % 82 % (31-73); PLATELET COUNT 169 x10^3/uL (140-400); RED BLOOD COUNT 4.07 x10^6/uL (4.30-5.70); RED CELL DISTRIBUTION WIDTH 14.2 % (11.5-14.5); WHITE BLOOD COUNT 11.5 x10^3/uL (4.0-11.0)
[2019-11-16 02:49] LABS: CALCIUM 8.5 mg/dL (8.5-10.1); CREATININE 1.2 mg/dL (0.7-1.3); GFR 61.3; POTASSIUM 3.8 mmol/L (3.5-5.1)
[2019-11-16 02:50] LABS: PROTHROMBIN TIME PATIENT 15.4 SEC (11.7-14.0)
[2019-11-16 03:04] LABS: ALBUMIN 2.4 g/dL (3.4-5.0); ALBUMIN/GLOBULIN RATIO 0.5 (1.0-1.7); TOTAL BILIRUBIN 0.9 mg/dL (0.2-1.0); TOTAL PROTEIN 7.4 g/dL (6.4-8.2)
--- NOTE | 2019-11-16 03:20 | RAD ---
PQRS Compliance Statement: One or more of the following individualized dose reduction techniques were utilized for this examination: 1. Automated exposure control 2. Adjustment of the mA and/or kV according to patient size 3. Use of iterative reconstruction technique CT ABDOMEN PELVIS WO CONTRAST Clinical Indication: Reason: FEVER, ABD PAIN / Comparison: CT abdomen and pelvis with contrast, October 14, 2019. Technique: Helical CT imaging of the abdomen and pelvis is performed without IV or oral contrast. Findings: Evaluation of solid organs and bowel is limited without oral and IV contrast, decreasing sensitivity for detection of pathology. Mild atelectasis or scarring posterior right lower lobe. Cardiac size normal. Cirrhotic liver. Stable splenomegaly. Cholelithiasis. The pancreas and adrenal glands are normal. Subcentimeter retroperitoneal lymph nodes. The abdominal aorta is normal caliber. There is bilateral hydroureteronephrosis, severe on the left. Left perinephric stranding. These findings are unchanged. Unchanged fat-containing periumbilical hernia. Induration of fat is unchanged. The stomach is unremarkable. There is no dilated small bowel. There is no colon wall thickening. The appendix is normal. There is marked distention of the urinary bladder which is unchanged. Prostate protrudes into the base of the urinary bladder, unchanged. Prostate is mildly enlarged. Mild urinary bladder wall thickening is unchanged. There is no pelvic free fluid. There is grade 1 anterolisthesis of L4 on L5. Tiny pelvic bone islands. IMPRESSION: 1. There is unchanged marked enlargement of the urinary bladder. Mild wall thickening may be due to chronic bladder outlet obstruction. 2. Unchanged severe left and mild right hydroureteronephrosis. Finding probably secondary to #1. 3. Prostatomegaly. 4. Hepatic cirrhosis. Stable splenomegaly. 5. Cholelithiasis. 6. Unchanged periumbilical hernia. Electronically signed by: Aramis Avila MD (11/16/2019 3:17 AM) [facility]ITAL[facility]LEN[facility]
--- NOTE | 2019-11-16 04:09 | RAD ---
PORTABLE CHEST 1V Clinical Indication: Reason: FEVER / Spl. Instructions: / History: Comparison: AP chest, October 14, 2019. Findings: Mildly tortuous thoracic aorta. The cardiomediastinal silhouette is normal. Lungs are clear. There is no pneumothorax. No pleural effusion is appreciated. No acute bone abnormality. Old left rib fractures. IMPRESSION: No acute cardiopulmonary process. Electronically signed by: Aramis Avila MD (11/16/2019 4:06 AM) [facility]
[2019-11-16 04:50] LABS: BILIRUBIN,URINE NEGATIVE (NEG); CLARITY,URINE TURBID; COLOR,URINE AMBER; NITRITE,URINE NEGATIVE (NEG); PH,URINE 6.5 (<5.0-8.0); PROTEIN,URINE 100 mg/dL (NEG-TRACE)
[2019-11-16 04:57] LABS: BACTERIA,URINE MANY /HPF (0-FEW); WBC,URINE TNTC /HPF (0-4)
[2019-11-16 04:58] LABS: YEAST,URINE PRESENT /HPF
[2019-11-16] MEDS ORDERED: PIPERACILLIN/TAZOBACTAM 3.375 GM in IV NORMAL SALINE 50ML 50 ML IV ONE (06:00)
[2019-11-16] MEDS ORDERED: ONDANSETRON PF 4 MG/2 ML VIAL. IV PRN (06:30)
[2019-11-16] MEDS ORDERED: MORPHINE SULFATE 2 MG/ML VIAL. IV PRN (06:30)
[2019-11-16 07:40] VITALS: BP 160/94
[2019-11-16] MEDS: IV NORMAL SALINE 1000ML BAG 1,000 ML IV SCH ×3 (08:11→21:35)
--- NOTE | 2019-11-16 10:06 | PDOC1 ---
History and Physical Date of Admission Date of Admission DATE: 11/16/19 TIME: 10:03 Identification/Chief Complaint Chief Complaint SEEN IN ER WITH FEVER , Over last couple days he has had a fever and chills.// nausea without significant vomiting. // hematuria in the past as well as pain that radiates from the abdomen to the back that is severe in severity currently and worse with palpation. chronic cough as well. CT CONCERNING FOR HERRON Heavy alcohol intake , ? drug use, + smoker 64 year old male presents with a chief complaint of abdominal pain. Patient has had abdominal pain with nausea Past Medical History Cardiovascular: No pertinent hx Pulmonary: No pertinent hx GI: No pertinent hx Hepatobiliary: Cirrhosis Psych: Other Renal/: No pertinent hx Endocrine: No pertinent hx Past Surgical History Past Surgical History: No pertinent history Family History Family History: Alcohol Abuse, Hypertension, Family History Unknown Social History Smoke: <1 pack per day ALCOHOL: heavy Drugs: None, Other Current Problem List Problem List Problems Medical Problems: (1) Abdominal pain Status: Acute (2) Bladder obstruction Status: Acute (3) Fever Status: Acute (4) UTI (urinary tract infection) Status: Acute Current Medications Current Medications Current Medications Acetaminophen (Tylenol) 1,000 mg 1X ONCE PO Last administered on 11/16/19at 02:54; Start 11/16/19 at 02:30; Stop 11/16/19 at 02:31; Status DC Ondansetron HCl (Zofran) 4 mg 1X ONCE IVP Last administered on 11/16/19at 02:53; Start 11/16/19 at 02:30; Stop 11/16/19 at 02:31; Status DC Sodium Chloride 1,000 ml @ 1,000 mls/hr 1X ONCE IV Last administered on 11/16/19at 02:54; Start 11/16/19 at 02:30; Stop 11/16/19 at 03:29; Status DC Morphine Sulfate (Morphine Sulfate) 4 mg 1X ONCE IV Last administered on 11/16/19at 02:53; Start 11/16/19 at 02:30; Stop 11/16/19 at 02:31; Status DC Piperacillin Sod/ Tazobactam Sod 3.375 gm/Sodium Chloride 50 ml @ 100 mls/hr 1X ONCE IV Last administered on 11/16/19at 06:25; Start 11/16/19 at 06:00; Stop 11/16/19 at 06:29; Status DC Ondansetron HCl (Zofran) 4 mg PRN Q8HRS PRN IV NAUSEA/VOMITING 1ST CHOICE; Start 11/16/19 at 06:30; Stop 11/17/19 at 06:29 Morphine Sulfate (Morphine Sulfate) 2 mg PRN Q2HR PRN IV SEVERE PAIN 7-10 Last administered on 11/16/19at 08:11; Start 11/16/19 at 06:30; Stop 11/17/19 at 06:29 Sodium Chloride 1,000 ml @ 125 mls/hr Q8H IV Last administered on 11/16/19at 08:11; Start 11/16/19 at 06:30; Stop 11/17/19 at 06:29 Active Scripts Active Cipro (Ciprofloxacin Hcl) 500 Mg Tablet 1 Tab PO BID 10 Days Allergies Allergies: Coded Allergies: No Known Drug Allergies (Unverified , 10/14/19) ROS Review of System Review of Systems: Constitutional: Complains of fever and chills Eyes: Denies change in visual acuity. [] HENT: Denies nasal congestion or sore throat. [] Respiratory: Complains of cough but no shortness of breath Cardiovascular: Denies chest pain or edema. [] GI: Complains of abdominal pain nausea but no vomiting or diarrhea : Complains of hematuria Musculoskeletal: Complains of back pain Integument: Denies rash. [] Neurologic: Denies headache, focal weakness or sensory changes. [] Endocrine: Denies polyuria or polydipsia. [] Lymphatic: Denies swollen glands. [] Psychiatric: Denies depression or anxiety. [] 14 PT ROS OTHERWISE NEG General: YES: Chills ALLERGY AND IMMUNOLOGY: No: Hives, Insect Bite Sensitivity, Itchy/Watery Eyes, Nasal Congestion, Post Nasal Drip, Seasonal Allergies, Other Hematological and Lymphatic: No: Bleeding Problems, Blood Clots, Blood Transfusions, Brusing, Night Sweats, Pallor, Swollen Lymph Nodes, Other Respiratory: YES: Cough Gastrointestinal: Yes Abdominal Pain; No Nausea, No Vomiting, No Diarrhea, No Constipation, No Melena, No Hematochezia, No Other Musculoskeletal: Yes Joint Stiffness Neurological: Yes Gait Disturbance Physical Exam Physical Exam Constitutional: Well developed, mild distress HENT: Normocephalic, atraumatic, bilateral external ears normal, no trismus nose normal. [] Eyes: PERRLA, EOMI, conjunctiva normal, no discharge. [] Neck: Normal range of motion, no tenderness, supple, no stridor. [] Cardiovascular:Heart rate regular rhythm, peripheral pulses intact, cap refill brisk Lungs & Thorax: Diminished breath sounds bilaterally Abdomen: Abdomen soft with diffuse tenderness worse on the right side no guarding or rebound no pulsatile mass bladder feels distended Skin: Warm, dry, no erythema, no rash. [] Back: No tenderness, bilateral CVA tenderness Extremities: No tenderness, no cyanosis, no clubbing, ROM intact, no edema. [] Neurologic: Alert and oriented X 3, normal motor function, normal sensory function, no focal deficits noted. [] Psychologic: Affect normal, judgement normal, mood normal. [] General: Alert, Oriented X3, Cooperative, No acute distress HEENT: Atraumatic, PERRLA, EOMI, Mucous membr. moist/pink Lungs: Normal air movement Heart: RRR, no thrills, no gallops Breasts: Not examined Abdomen: Soft, No tenderness Rectal Exam: not examined PELVIC: Examination not indicated Extremities: No cyanosis Neuro: Normal speech, Cranial nerves 3-12 NL Psych/Mental Status: Mental status NL, Mood NL Vitals Vitals Vital Signs Date Time Temp Pulse Resp B/P (MAP) Pulse Ox O2 Delivery O2 Flow Rate FiO2 11/16/19 08:11 96 11/16/19 06:57 68 109/66 (80) Room Air 11/16/19 04:27 18 11/16/19 01:10 100.4 100.4 Labs Labs Laboratory Tests Test 11/16/19 00:53 11/16/19 02:20 11/16/19 04:39 Urine Collection Type Unknown Unknown Urine Color Yellow Abril Urine Clarity Turbid Turbid Urine pH 6.5 (<5.0-8.0) 6.5 (<5.0-8.0) Urine Specific Ada <=1.005 (1.000-1.030) <=1.005 (1.000-1.030) Urine Protein 30 mg/dL (NEG-TRACE) 100 mg/dL (NEG-TRACE) Urine Glucose (UA) Negative mg/dL (NEG) Negative mg/dL (NEG) Urine Ketones (Stick) Negative mg/dL (NEG) Negative mg/dL (NEG) Urine Blood Moderate (NEG) Large (NEG) Urine Nitrite Negative (NEG) Negative (NEG) Urine Bilirubin Negative (NEG) Negative (NEG) Urine Urobilinogen Dipstick 1.0 mg/dL (0.2 mg/dL) 1.0 mg/dL (0.2 mg/dL) Urine Leukocyte Esterase Large (NEG) Large (NEG) Urine RBC 6-10 /HPF (0-2) 6-10 /HPF (0-2) Urine WBC Tntc /HPF (0-4) Tntc /HPF (0-4) Urine Squamous Epithelial Cells None /LPF None /LPF Urine Bacteria Many /HPF (0-FEW) Many /HPF (0-FEW) Urine Yeast Present /HPF Present /HPF White Blood Count 11.5 x10^3/uL (4.0-11.0) Red Blood Count 4.07 x10^6/uL (4.30-5.70) Hemoglobin 12.5 g/dL (13.0-17.5) Hematocrit 37.0 % (39.0-53.0) Mean Corpuscular Volume 91 fL (79-100) Mean Corpuscular Hemoglobin 31 pg (25-35) Mean Corpuscular Hemoglobin Concent 34 g/dL (31-37) Red Cell Distribution Width 14.2 % (11.5-14.5) Platelet Count 169 x10^3/uL (140-400) Neutrophils (%) (Auto) 82 % (31-73) Lymphocytes (%) (Auto) 7 % (24-48) Monocytes (%) (Auto) 9 % (0-9) Eosinophils (%) (Auto) 2 % (0-3) Basophils (%) (Auto) 1 % (0-3) Neutrophils # (Auto) 9.4 x10^3/uL (1.8-7.7) Lymphocytes # (Auto) 0.7 x10^3/uL (1.0-4.8) Monocytes # (Auto) 1.1 x10^3/uL (0.0-1.1) Eosinophils # (Auto) 0.2 x10^3/uL (0.0-0.7) Basophils # (Auto) 0.1 x10^3/uL (0.0-0.2) Prothrombin Time 15.4 SEC (11.7-14.0) Prothromb Time International Ratio 1.3 (0.8-1.1) Activated Partial Thromboplast Time 33 SEC (24-38) Sodium Level 137 mmol/L (136-145) Potassium Level 3.8 mmol/L (3.5-5.1) Chloride Level 104 mmol/L (98-107) Carbon Dioxide Level 27 mmol/L (21-32) Anion Gap 6 (6-14) Blood Urea Nitrogen 12 mg/dL (8-26) Creatinine 1.2 mg/dL (0.7-1.3) Estimated GFR (Cockcroft-Gault) 61.3 BUN/Creatinine Ratio 10 (6-20) Glucose Level 160 mg/dL (70-99) Lactic Acid Level 1.9 mmol/L (0.4-2.0) Calcium Level 8.5 mg/dL (8.5-10.1) Total Bilirubin 0.9 mg/dL (0.2-1.0) Aspartate Amino Transf (AST/SGOT) 43 U/L (15-37) Alanine Aminotransferase (ALT/SGPT) 35 U/L (16-63) Alkaline Phosphatase 126 U/L (46-116) Creatine Kinase 43 U/L (39-308) Total Protein 7.4 g/dL (6.4-8.2) Albumin 2.4 g/dL (3.4-5.0) Albumin/Globulin Ratio 0.5 (1.0-1.7) Amylase Level 76 U/L (25-115) Lipase 292 U/L (73-393) Procalcitonin < 0.10 ng/mL (0.00-0.10) Laboratory Tests Test 11/16/19 00:53 11/16/19 02:20 11/16/19 04:39 Urine Collection Type Unknown Unknown Urine Color Yellow Abril Urine Clarity Turbid Turbid Urine pH 6.5 (<5.0-8.0) 6.5 (<5.0-8.0) Urine Specific Ada <=1.005 (1.000-1.030) <=1.005 (1.000-1.030) Urine Protein 30 mg/dL (NEG-TRACE) 100 mg/dL (NEG-TRACE) Urine Glucose (UA) Negative mg/dL (NEG) Negative mg/dL (NEG) Urine Ketones (Stick) Negative mg/dL (NEG) Negative mg/dL (NEG) Urine Blood Moderate (NEG) Large (NEG) Urine Nitrite Negative (NEG) Negative (NEG) Urine Bilirubin Negative (NEG) Negative (NEG) Urine Urobilinogen Dipstick 1.0 mg/dL (0.2 mg/dL) 1.0 mg/dL (0.2 mg/dL) Urine Leukocyte Esterase Large (NEG) Large (NEG) Urine RBC 6-10 /HPF (0-2) 6-10 /HPF (0-2) Urine WBC Tntc /HPF (0-4) Tntc /HPF (0-4) Urine Squamous Epithelial Cells None /LPF None /LPF Urine Bacteria Many /HPF (0-FEW) Many /HPF (0-FEW) Urine Yeast Present /HPF Present /HPF White Blood Count 11.5 x10^3/uL (4.0-11.0) Red Blood Count 4.07 x10^6/uL (4.30-5.70) Hemoglobin 12.5 g/dL (13.0-17.5) Hematocrit 37.0 % (39.0-53.0) Mean Corpuscular Volume 91 fL (79-100) Mean Corpuscular Hemoglobin 31 pg (25-35) Mean Corpuscular Hemoglobin Concent 34 g/dL (31-37) Red Cell Distribution Width 14.2 % (11.5-14.5) Platelet Count 169 x10^3/uL (140-400) Neutrophils (%) (Auto) 82 % (31-73) Lymphocytes (%) (Auto) 7 % (24-48) Monocytes (%) (Auto) 9 % (0-9) Eosinophils (%) (Auto) 2 % (0-3) Basophils (%) (Auto) 1 % (0-3) Neutrophils # (Auto) 9.4 x10^3/uL (1.8-7.7) Lymphocytes # (Auto) 0.7 x10^3/uL (1.0-4.8) Monocytes # (Auto) 1.1 x10^3/uL (0.0-1.1) Eosinophils # (Auto) 0.2 x10^3/uL (0.0-0.7) Basophils # (Auto) 0.1 x10^3/uL (0.0-0.2) Prothrombin Time 15.4 SEC (11.7-14.0) Prothromb Time International Ratio 1.3 (0.8-1.1) Activated Partial Thromboplast Time 33 SEC (24-38) Sodium Level 137 mmol/L (136-145) Potassium Level 3.8 mmol/L (3.5-5.1) Chloride Level 104 mmol/L (98-107) Carbon Dioxide Level 27 mmol/L (21-32) Anion Gap 6 (6-14) Blood Urea Nitrogen 12 mg/dL (8-26) Creatinine 1.2 mg/dL (0.7-1.3) Estimated GFR (Cockcroft-Gault) 61.3 BUN/Creatinine Ratio 10 (6-20) Glucose Level 160 mg/dL (70-99) Lactic Acid Level 1.9 mmol/L (0.4-2.0) Calcium Level 8.5 mg/dL (8.5-10.1) Total Bilirubin 0.9 mg/dL (0.2-1.0) Aspartate Amino Transf (AST/SGOT) 43 U/L (15-37) Alanine Aminotransferase (ALT/SGPT) 35 U/L (16-63) Alkaline Phosphatase 126 U/L (46-116) Creatine Kinase 43 U/L (39-308) Total Protein 7.4 g/dL (6.4-8.2) Albumin 2.4 g/dL (3.4-5.0) Albumin/Globulin Ratio 0.5 (1.0-1.7) Amylase Level 76 U/L (25-115) Lipase 292 U/L (73-393) Procalcitonin < 0.10 ng/mL (0.00-0.10) Images Images DPOA REVIEW 17 MIN What Is a Power of Beam Dyer? A power of patent attorney (POA) is a legal document giving one person (the agent or llcnjnob-jk-oica) the power to act for another person (the principal). The agent can have broad legal authority or limited authority to make legal decisions about the principal's property, finances or medical care. The power of patent attorney is frequently used in the event of a principal's illness or disability, or when the principal can't be present to sign necessary legal documents for financial transactions. A power of patent attorney can end for a number of reasons, such as when the principal dies, the principal revokes it, a court invalidates it, the principal divorces their spouse, who happens to be the agent, or the agent can no longer carry out the outlined responsibilities. Conventional POAs lapse when the creator becomes incapacitated, but a durable POA remains in force to enable the agent to manage the creators affairs, and a springing POA comes into effect only if and when the creator of the POA becomes incapacitated. A medical or healthcare POA enables an agent to make medical decisions on behalf of an incapacitated person. Alvarado Takeaways A power of patent attorney (POA) is a legal document giving one person, the agent or [id number] the power to act for another person, the principal. The agent can have broad legal authority or limited authority to make decisions about the principal's property, finances or medical care. The power of patent attorney is often used when a principal becomes ill or disabled, or when they can't be present to sign necessary legal documents for financial transactions. Understanding Power of Beam Dyer A power of patent attorney should be considered when planning for long-term care. There are different types of POAs that fall under either a general power of patent attorney or limited power of patent attorney. A general power of patent attorney acts on behalf of the principal in any and all matters, as allowed by the state. The agent under a general POA agreement may be authorized to take care of issues such as handling bank accounts, signing checks, selling property and assets like stocks, f A limited power of patent attorney gives the agent the power to act on behalf of the principal in specific matters or events. For example, the limited POA may explicitly state that the agent is only allowed to manage the principal's senior living accounts. A limited POA may also be limited to a specific period of time (e.g., if the principal will be out of the country for, say, two years). Most lindquist of patent attorney documents allow an agent to represent the principal in all property and financial matters as long as the principals mental state of mind is good. If a situation occurs where the principal becomes incapable of making decisions for him or herself, the POA agreement would automatically end. However, someone who wants the POA to remain in effect after the persons health deteriorates would need to sign a durable power of patent attorney (DPOA). Important:A person appointed as power of patent attorney is not necessarily an patent attorney. The person could just be a trusted family member, friend, or acquaintance. Understanding the Durable Power of Beam Dyer (DPOA) The durable power of patent attorney (DPOA) remains in control of certain legal, property or financial matters specifically spelled out in the agreement, even after the principal becomes mentally incapacitated. While a DPOA can pay medical bills on behalf of the principal, the durable agent cannot make decisions related to the principal's health (e.g., taking the principal off life support is not up to a DPOA). The principal can sign a durable power of patent attorney for health care, or [facility] power of patent attorney (HCPA), if he wants an agent to have the power to make health-related decisions. This document also called a healthcare proxy, outlines the principals consent to give the agent POA privileges in the event of an unfortunate medical condition. The durable POA for healthcare is legally bound to oversee medical care decisions on behalf of the principal. Another type of DPOA is the durable power of patent attorney for finances, or simply a financial power of patent attorney. This document allows an agent to manage the business and financial affairs of the principal, such as signing checks, filing tax returns, mailing and depositing Social Security checks and managing investment accounts, in the event, the latter becomes unable to understand or ma ke decisions. To the extent of what the agreement spells out as the agents responsibility, the agent has to carry out the principals wishes to the best of his ability. When the agent acts on behalf of the principal by making investment decisions through the energy broker or medical decisions through the healthcare professional, both institutions would ask to see the DPOA. Although the DPOA for both medical and financial matters can be one document, it is good to have separate DPOA for healthcare and finances. Since the DPOA for healthcare will have the principal's personal medical information, it would be inappropriate for the energy broker to have it, and the medical equipment technician dont need to know the financial status of the patient either. conditions for which a durable POA may become active are set up in a document called the springing power of patent attorney. The springing POA defines the kind of event or level of incapacitation that should occur before the DPOA springs into effect. A power of patent attorney can remain dormant until a negative health occurrence activates it to a DPOA. How Power of Beam Dyer Works You can buy or download a power of patent attorney template. If you do, be sure it is for your state, as requirements differ. However, this document may be too imp ortant to leave to the chance that you got the correct form and handled it properly. A better way to start the process of establishing a power of patent attorney is by locating an patent attorney who specializes in family law in your state. If patent attorney's fees are more than you can afford, legal services offices staffed with credentialed attorneys exist in virtually every part of the [place]. Visit the [employer]'s website, which has a "Find Stress Analyst" search function. Clients who qualify will receive pro reyes (cost-free) assistance Many states require that the signature of the principal (the person who initiates the POA) be notarized. Some states also require that witnesses' signatures be notarized. PROCEDURE: CT ABDOMEN PELVIS WO CONTRAST PQRS Compliance Statement: One or more of the following individualized dose reduction techniques were utilized for this examination: 1. Automated exposure control 2. Adjustment of the mA and/or kV according to patient size 3. Use of iterative reconstruction technique CT ABDOMEN PELVIS WO CONTRAST Clinical Indication: Reason: FEVER, ABD PAIN / Comparison: CT abdomen and pelvis with contrast, October 14, 2019. Technique: Helical CT imaging of the abdomen and pelvis is performed without IV or oral contrast. Findings: Evaluation of solid organs and bowel is limited without oral and IV contrast, decreasing sensitivity for detection of pathology. Mild atelectasis or scarring posterior right lower lobe. Cardiac size normal. Cirrhotic liver. Stable splenomegaly. Cholelithiasis. The pancreas and adrenal glands are normal. Subcentimeter retroperitoneal lymph nodes. The abdominal aorta is normal caliber. There is bilateral hydroureteronephrosis, severe on the left. Left perinephric stranding. These findings are unchanged. Unchanged fat-containing periumbilical hernia. Induration of fat is unchanged. The stomach is unremarkable. There is no dilated small bowel. There is no colon wall thickening. The appendix is normal. There is marked distention of the urinary bladder which is unchanged. Prostate protrudes into the base of the urinary bladder, unchanged. Prostate is mildly enlarged. Mild urinary bladder wall thickening is unchanged. There is no pelvic free fluid. There is grade 1 anterolisthesis of L4 on L5. Tiny pelvic bone islands. IMPRESSION: 1. There is unchanged marked enlargement of the urinary bladder. Mild wall thickening may be due to chronic bladder outlet obstruction. 2. Unchanged severe left and mild right hydroureteronephrosis. Finding probably secondary to #1. 3. Prostatomegaly. 4. Hepatic cirrhosis. Stable splenomegaly. 5. Cholelithiasis. 6. Unchanged periumbilical hernia. Electronically signed by: Aramis Avila MD (11/16/2019 3:17 AM) [facility] DICTATED and SIGNED BY: ARAMIS AVILA MD DATE: 11/16/19316 VTE Prophylaxis Ordered VTE Prophylaxis Devices: No VTE Pharmacological Prophylaxi: No Assessment/Plan Assessment/Plan Impression: UTI (urinary tract infection) PUI Bladder obstruction Abdominal pain Fever marked enlargement of the urinary bladder. Mild wall thickening may be due to chronic bladder outlet obstruction. severe left and mild right hydroureteronephrosis. Finding probably secondary to HERRON Prostatomegaly. Hepatic cirrhosis. Stable splenomegaly. Heavy alcohol intake , ? drug use, TOBACCO ABUSE DISORDER Cholelithiasis. Unchanged periumbilical hernia. severe protein-caloric malnutrition sepsis plan ADMITTED NEEDS UROLOGY CONSULT EMPERIC IV ANTIBIOTICS BLOOD AND URINE CULTURES Smoking cessation encouraged ciwa protocol iv zosyn cassidy 74 min pt exam, chart review, > 50% of time spent with exam, chart review, pt care coordination 76 min pt exam, chart review, > 50% of time spent with exam, chart review, pt care coordination Justifications for Admission Other Justification UVALDO QUINONES MD Nov 16, 2019 10:06
[2019-11-16 11:00] VITALS: BP 117/60
[2019-11-16] MEDS ORDERED: DOCU-109 PO (11:37)
[2019-11-16] MEDS ORDERED: MULT1CAP15 PO (11:37)
[2019-11-16] MEDS ORDERED: diphenhydrAMINE 50 MG/ML VIAL IVP PRN (12:15)
[2019-11-16] MEDS ORDERED: HALOPERIDOL LACTATE 5 MG/ML VIAL. IVP PRN (12:15)
[2019-11-16] MEDS ORDERED: cloNIDine HCL 0.1 MG TABLET PO PRN (12:15)
[2019-11-16 12:34] LABS: BARBITURATES NEG (NEG); BENZODIAZEPINES NEG (NEG); CANNABINOIDS NEG (NEG); COCAINE NEG (NEG); METHADONE NEG (NEG); OPIATES NEG (NEG); PHENCYCLIDINE NEG (NEG)
[2019-11-16 12:41] LABS: AMPHETAMINE/METHAMPHETAMINE NEG (NEG)
[2019-11-16] MEDS: PIPERACILLIN/TAZOBACTAM 3.375 GM in IV NORMAL SALINE 50ML 50 ML IV SCH (14:17)
[2019-11-16 15:00] VITALS: BP 119/76
[2019-11-16 19:00] VITALS: BP 106/69
[2019-11-16] MEDS ORDERED: ACETAMINOPHEN 325 MG TABLET. PO PRN (21:15)
[2019-11-16 23:00] VITALS: BP 112/70
[2019-11-17] MEDS: PIPERACILLIN/TAZOBACTAM 3.375 GM in IV NORMAL SALINE 50ML 50 ML IV SCH ×4 (00:20→17:22)
[2019-11-17 03:35] VITALS: BP 93/59
[2019-11-17 04:47] LABS: BASO # 0.1 x10^3/uL (0.0-0.2); BASO % 1 % (0-3); EOS # 0.4 x10^3/uL (0.0-0.7); EOS % 4 % (0-3); HEMATOCRIT 33.9 % (39.0-53.0); HEMOGLOBIN 11.3 g/dL (13.0-17.5); LYMPH # 1.8 x10^3/uL (1.0-4.8); LYMPH % 16 % (24-48); MEAN CORPUSCULAR HEMOGLOBIN 31 pg (25-35); MEAN CORPUSCULAR HGB CONC 33 g/dL (31-37); MEAN CORPUSCULAR VOLUME 92 fL (79-100); MONO # 1.2 x10^3/uL (0.0-1.1); MONO % 10 % (0-9); NEUT # 8.2 x10^3/uL (1.8-7.7); NEUT % 70 % (31-73); PLATELET COUNT 132 x10^3/uL (140-400); RED BLOOD COUNT 3.68 x10^6/uL (4.30-5.70); RED CELL DISTRIBUTION WIDTH 14.4 % (11.5-14.5); WHITE BLOOD COUNT 11.7 x10^3/uL (4.0-11.0)
[2019-11-17 05:06] LABS: ALBUMIN 1.9 g/dL (3.4-5.0); ALBUMIN/GLOBULIN RATIO 0.4 (1.0-1.7); CALCIUM 8.1 mg/dL (8.5-10.1); CREATININE 1.4 mg/dL (0.7-1.3); GFR 51.4; POTASSIUM 3.6 mmol/L (3.5-5.1); TOTAL BILIRUBIN 1.3 mg/dL (0.2-1.0); TOTAL PROTEIN 6.3 g/dL (6.4-8.2)
[2019-11-17 07:15] VITALS: BP 97/65
--- NOTE | 2019-11-17 08:26 | PDOC ---
PROGRESS NOTES Date of Service: DATE: 11/17/19 TIME: 08:26 Chief Complaint Chief Complaint VTE Prophylaxis Ordered VTE Prophylaxis Devices: No VTE Pharmacological Prophylaxi: No Assessment/Plan Assessment/Plan Impression: UTI (urinary tract infection) PUI Bladder obstruction Abdominal pain Fever marked enlargement of the urinary bladder. Mild wall thickening may be due to chronic bladder outlet obstruction. severe left and mild right hydroureteronephrosis. Finding probably secondary to HERRON Prostatomegaly. Hepatic cirrhosis. Stable splenomegaly. Heavy alcohol intake , ? drug use, TOBACCO ABUSE DISORDER Cholelithiasis. Unchanged periumbilical hernia. severe protein-caloric malnutrition sepsis plan 11/16 PEREZ REPLACED DUE TO LARGE MUCOUS PLUG 3000 CC retained urine ADMITTED NEEDS UROLOGY CONSULT soon EMPERIC IV ANTIBIOTICS BLOOD AND URINE CULTURES Smoking cessation encouraged ciwa protocol iv zosyn perez , replace fluconazole 200 mg iv q 24 hrs 37 min pt exam, chart review, > 50% of time spent with exam, chart review, pt care coordination History of Present Illness History of Present Illness Identification/Chief Complaint Chief Complaint SEEN IN ER WITH FEVER , Over last couple days he has had a fever and chills.// nausea without significant vomiting. // hematuria in the past as well as pain that radiates from the abdomen to the back that is severe in severity currently and worse with palpation. chronic cough as well. CT CONCERNING FOR HERRON Heavy alcohol intake , ? drug use, + smoker 64 year old male presents with a chief complaint of abdominal pain. Patient has had abdominal pain with nausea Past Medical History Cardiovascular: No pertinent hx Pulmonary: No pertinent hx GI: No pertinent hx Hepatobiliary: Cirrhosis Psych: Other Renal/: No pertinent hx Endocrine: No pertinent hx Past Surgical History Past Surgical History: No pertinent history Family History Family History: Alcohol Abuse, Hypertension, Family History Unknown Social History Smoke: <1 pack per day ALCOHOL: heavy Drugs: None, Other Vitals Vitals Vital Signs Date Time Temp Pulse Resp B/P (MAP) Pulse Ox O2 Delivery O2 Flow Rate FiO2 11/17/19 03:35 99.0 70 21 93/59 (70) 93 Room Air 99.0 Physical Exam General: Alert, Oriented X3, Cooperative, No acute distress Heart: Regular rate, Normal S1 Lungs: Clear Abdomen: Normal bowel sounds, Soft, No tenderness Extremities: No cyanosis Labs LABS RECD: 11/16/[address]: TONI CLARK MD SOURCE: STRA CATH ENTR: 11/16/19 SAUL BANGURA: JAVIER OCONNELL SPDESC: STR CATH ORDERED: URINE CULTURE Procedure Result URINE CULTURE Final Final GREATER THAN 100,000 CFU/ML [RAMSES ALBICANS] on 11/17/19 at 1128 Testing Performed by: [place] [address] For Inquires, the Physician may contact the Microbiology department at [phone] RAMSES ALBICANS Unless otherwise specified, Testing Performed by: [address] [address] For Inquires, the Physician may contact the Microbiology department at [phone] Laboratory Tests Test 11/17/19 04:30 White Blood Count 11.7 x10^3/uL (4.0-11.0) Red Blood Count 3.68 x10^6/uL (4.30-5.70) Hemoglobin 11.3 g/dL (13.0-17.5) Hematocrit 33.9 % (39.0-53.0) Mean Corpuscular Volume 92 fL (79-100) Mean Corpuscular Hemoglobin 31 pg (25-35) Mean Corpuscular Hemoglobin Concent 33 g/dL (31-37) Red Cell Distribution Width 14.4 % (11.5-14.5) Platelet Count 132 x10^3/uL (140-400) Neutrophils (%) (Auto) 70 % (31-73) Lymphocytes (%) (Auto) 16 % (24-48) Monocytes (%) (Auto) 10 % (0-9) Eosinophils (%) (Auto) 4 % (0-3) Basophils (%) (Auto) 1 % (0-3) Neutrophils # (Auto) 8.2 x10^3/uL (1.8-7.7) Lymphocytes # (Auto) 1.8 x10^3/uL (1.0-4.8) Monocytes # (Auto) 1.2 x10^3/uL (0.0-1.1) Eosinophils # (Auto) 0.4 x10^3/uL (0.0-0.7) Basophils # (Auto) 0.1 x10^3/uL (0.0-0.2) Sodium Level 137 mmol/L (136-145) Potassium Level 3.6 mmol/L (3.5-5.1) Chloride Level 105 mmol/L (98-107) Carbon Dioxide Level 27 mmol/L (21-32) Anion Gap 5 (6-14) Blood Urea Nitrogen 15 mg/dL (8-26) Creatinine 1.4 mg/dL (0.7-1.3) Estimated GFR (Cockcroft-Gault) 51.4 BUN/Creatinine Ratio 11 (6-20) Glucose Level 87 mg/dL (70-99) Calcium Level 8.1 mg/dL (8.5-10.1) Total Bilirubin 1.3 mg/dL (0.2-1.0) Aspartate Amino Transf (AST/SGOT) 39 U/L (15-37) Alanine Aminotransferase (ALT/SGPT) 28 U/L (16-63) Alkaline Phosphatase 88 U/L (46-116) Total Protein 6.3 g/dL (6.4-8.2) Albumin 1.9 g/dL (3.4-5.0) Albumin/Globulin Ratio 0.4 (1.0-1.7) Assessment and Plan Assessmemt and Plan Problems Medical Problems: (1) Abdominal pain Status: Acute (2) Bladder obstruction Status: Acute (3) Fever Status: Acute (4) UTI (urinary tract infection) Status: Acute Comment Review of Relevant I have reviewed the following items aly (where applicable) has been applied. Labs Laboratory Tests Test 11/16/19 00:53 11/16/19 02:20 11/16/19 04:39 11/17/19 04:30 Urine Collection Type Unknown Unknown Urine Color Yellow Abril Urine Clarity Turbid Turbid Urine pH 6.5 (<5.0-8.0) 6.5 (<5.0-8.0) Urine Specific Bitely <=1.005 (1.000-1.030) <=1.005 (1.000-1.030) Urine Protein 30 mg/dL (NEG-TRACE) 100 mg/dL (NEG-TRACE) Urine Glucose (UA) Negative mg/dL (NEG) Negative mg/dL (NEG) Urine Ketones (Stick) Negative mg/dL (NEG) Negative mg/dL (NEG) Urine Blood Moderate (NEG) Large (NEG) Urine Nitrite Negative (NEG) Negative (NEG) Urine Bilirubin Negative (NEG) Negative (NEG) Urine Urobilinogen Dipstick 1.0 mg/dL (0.2 mg/dL) 1.0 mg/dL (0.2 mg/dL) Urine Leukocyte Esterase Large (NEG) Large (NEG) Urine RBC 6-10 /HPF (0-2) 6-10 /HPF (0-2) Urine WBC Tntc /HPF (0-4) Tntc /HPF (0-4) Urine Squamous Epithelial Cells None /LPF None /LPF Urine Bacteria Many /HPF (0-FEW) Many /HPF (0-FEW) Urine Yeast Present /HPF Present /HPF Urine Opiates Screen Neg (NEG) Urine Methadone Screen Neg (NEG) Urine Barbiturates Neg (NEG) Urine Phencyclidine Screen Neg (NEG) Urine Amphetamine/Methamphetamine Neg (NEG) Urine Benzodiazepines Screen Neg (NEG) Urine Cocaine Screen Neg (NEG) Urine Cannabinoids Screen Neg (NEG) Urine Ethyl Alcohol Neg (NEG) White Blood Count 11.5 x10^3/uL (4.0-11.0) 11.7 x10^3/uL (4.0-11.0) Red Blood Count 4.07 x10^6/uL (4.30-5.70) 3.68 x10^6/uL (4.30-5.70) Hemoglobin 12.5 g/dL (13.0-17.5) 11.3 g/dL (13.0-17.5) Hematocrit 37.0 % (39.0-53.0) 33.9 % (39.0-53.0) Mean Corpuscular Volume 91 fL (79-100) 92 fL (79-100) Mean Corpuscular Hemoglobin 31 pg (25-35) 31 pg (25-35) Mean Corpuscular Hemoglobin Concent 34 g/dL (31-37) 33 g/dL (31-37) Red Cell Distribution Width 14.2 % (11.5-14.5) 14.4 % (11.5-14.5) Platelet Count 169 x10^3/uL (140-400) 132 x10^3/uL (140-400) Neutrophils (%) (Auto) 82 % (31-73) 70 % (31-73) Lymphocytes (%) (Auto) 7 % (24-48) 16 % (24-48) Monocytes (%) (Auto) 9 % (0-9) 10 % (0-9) Eosinophils (%) (Auto) 2 % (0-3) 4 % (0-3) Basophils (%) (Auto) 1 % (0-3) 1 % (0-3) Neutrophils # (Auto) 9.4 x10^3/uL (1.8-7.7) 8.2 x10^3/uL (1.8-7.7) Lymphocytes # (Auto) 0.7 x10^3/uL (1.0-4.8) 1.8 x10^3/uL (1.0-4.8) Monocytes # (Auto) 1.1 x10^3/uL (0.0-1.1) 1.2 x10^3/uL (0.0-1.1) Eosinophils # (Auto) 0.2 x10^3/uL (0.0-0.7) 0.4 x10^3/uL (0.0-0.7) Basophils # (Auto) 0.1 x10^3/uL (0.0-0.2) 0.1 x10^3/uL (0.0-0.2) Prothrombin Time 15.4 SEC (11.7-14.0) Prothromb Time International Ratio 1.3 (0.8-1.1) Activated Partial Thromboplast Time 33 SEC (24-38) Sodium Level 137 mmol/L (136-145) 137 mmol/L (136-145) Potassium Level 3.8 mmol/L (3.5-5.1) 3.6 mmol/L (3.5-5.1) Chloride Level 104 mmol/L (98-107) 105 mmol/L (98-107) Carbon Dioxide Level 27 mmol/L (21-32) 27 mmol/L (21-32) Anion Gap 6 (6-14) 5 (6-14) Blood Urea Nitrogen 12 mg/dL (8-26) 15 mg/dL (8-26) Creatinine 1.2 mg/dL (0.7-1.3) 1.4 mg/dL (0.7-1.3) Estimated GFR (Cockcroft-Gault) 61.3 51.4 BUN/Creatinine Ratio 10 (6-20) 11 (6-20) Glucose Level 160 mg/dL (70-99) 87 mg/dL (70-99) Lactic Acid Level 1.9 mmol/L (0.4-2.0) Calcium Level 8.5 mg/dL (8.5-10.1) 8.1 mg/dL (8.5-10.1) Total Bilirubin 0.9 mg/dL (0.2-1.0) 1.3 mg/dL (0.2-1.0) Aspartate Amino Transf (AST/SGOT) 43 U/L (15-37) 39 U/L (15-37) Alanine Aminotransferase (ALT/SGPT) 35 U/L (16-63) 28 U/L (16-63) Alkaline Phosphatase 126 U/L (46-116) 88 U/L (46-116) Creatine Kinase 43 U/L (39-308) Total Protein 7.4 g/dL (6.4-8.2) 6.3 g/dL (6.4-8.2) Albumin 2.4 g/dL (3.4-5.0) 1.9 g/dL (3.4-5.0) Albumin/Globulin Ratio 0.5 (1.0-1.7) 0.4 (1.0-1.7) Amylase Level 76 U/L (25-115) Lipase 292 U/L (73-393) Procalcitonin < 0.10 ng/mL (0.00-0.10) Laboratory Tests Test 11/17/19 04:30 White Blood Count 11.7 x10^3/uL (4.0-11.0) Red Blood Count 3.68 x10^6/uL (4.30-5.70) Hemoglobin 11.3 g/dL (13.0-17.5) Hematocrit 33.9 % (39.0-53.0) Mean Corpuscular Volume 92 fL (79-100) Mean Corpuscular Hemoglobin 31 pg (25-35) Mean Corpuscular Hemoglobin Concent 33 g/dL (31-37) Red Cell Distribution Width 14.4 % (11.5-14.5) Platelet Count 132 x10^3/uL (140-400) Neutrophils (%) (Auto) 70 % (31-73) Lymphocytes (%) (Auto) 16 % (24-48) Monocytes (%) (Auto) 10 % (0-9) Eosinophils (%) (Auto) 4 % (0-3) Basophils (%) (Auto) 1 % (0-3) Neutrophils # (Auto) 8.2 x10^3/uL (1.8-7.7) Lymphocytes # (Auto) 1.8 x10^3/uL (1.0-4.8) Monocytes # (Auto) 1.2 x10^3/uL (0.0-1.1) Eosinophils # (Auto) 0.4 x10^3/uL (0.0-0.7) Basophils # (Auto) 0.1 x10^3/uL (0.0-0.2) Sodium Level 137 mmol/L (136-145) Potassium Level 3.6 mmol/L (3.5-5.1) Chloride Level 105 mmol/L (98-107) Carbon Dioxide Level 27 mmol/L (21-32) Anion Gap 5 (6-14) Blood Urea Nitrogen 15 mg/dL (8-26) Creatinine 1.4 mg/dL (0.7-1.3) Estimated GFR (Cockcroft-Gault) 51.4 BUN/Creatinine Ratio 11 (6-20) Glucose Level 87 mg/dL (70-99) Calcium Level 8.1 mg/dL (8.5-10.1) Total Bilirubin 1.3 mg/dL (0.2-1.0) Aspartate Amino Transf (AST/SGOT) 39 U/L (15-37) Alanine Aminotransferase (ALT/SGPT) 28 U/L (16-63) Alkaline Phosphatase 88 U/L (46-116) Total Protein 6.3 g/dL (6.4-8.2) Albumin 1.9 g/dL (3.4-5.0) Albumin/Globulin Ratio 0.4 (1.0-1.7) Microbiology 11/16/19 Blood Culture - Preliminary, Resulted NO GROWTH AFTER 1 DAY Medications Current Medications Acetaminophen (Tylenol) 1,000 mg 1X ONCE PO Last administered on 11/16/19at 02:54; Start 11/16/19 at 02:30; Stop 11/16/19 at 02:31; Status DC Ondansetron HCl (Zofran) 4 mg 1X ONCE IVP Last administered on 11/16/19at 02:53; Start 11/16/19 at 02:30; Stop 11/16/19 at 02:31; Status DC Sodium Chloride 1,000 ml @ 1,000 mls/hr 1X ONCE IV Last administered on 11/16/19at 02:54; Start 11/16/19 at 02:30; Stop 11/16/19 at 03:29; Status DC Morphine Sulfate (Morphine Sulfate) 4 mg 1X ONCE IV Last administered on 11/16/19at 02:53; Start 11/16/19 at 02:30; Stop 11/16/19 at 02:31; Status DC Piperacillin Sod/ Tazobactam Sod 3.375 gm/Sodium Chloride 50 ml @ 100 mls/hr 1X ONCE IV Last administered on 11/16/19at 06:25; Start 11/16/19 at 06:00; Stop 11/16/19 at 06:29; Status DC Ondansetron HCl (Zofran) 4 mg PRN Q8HRS PRN IV NAUSEA/VOMITING 1ST CHOICE; Start 11/16/19 at 06:30; Stop 11/17/19 at 06:29; Status DC Morphine Sulfate (Morphine Sulfate) 2 mg PRN Q2HR PRN IV SEVERE PAIN 7-10 Last administered on 11/16/19at 08:11; Start 11/16/19 at 06:30; Stop 11/17/19 at 06:29; Status DC Sodium Chloride 1,000 ml @ 125 mls/hr Q8H IV Last administered on 11/16/19at 18:48; Start 11/16/19 at 06:30; Stop 11/17/19 at 06:29; Status DC Folic Acid (Folic Acid) 1 mg DAILY PO ; Start 11/17/19 at 09:00 Thiamine Mononitrate (Vitamin B-1) 100 mg DAILY PO ; Start 11/22/19 at 09:00 Thiamine HCl 100 mg/Dextrose 51 ml @ 100 mls/hr DAILY IV ; Start 11/17/19 at 09:00; Stop 11/21/19 at 09:31 Lorazepam (Ativan) 4 mg PRN Q1HR PRN PO For CIWA 8-14; Start 11/16/19 at 12:15 Lorazepam (Ativan) 8 mg PRN Q1HR PRN PO For CIWA 15 or greater; Start 11/16/19 at 12:15 Lorazepam (Ativan Inj) 2 mg PRN Q1HR PRN IV For CIWA 8-14; Start 11/16/19 at 12:15 Lorazepam (Ativan Inj) 4 mg PRN Q1HR PRN IV For CIWA 15 or greater; Start 11/16/19 at 12:15 Haloperidol Lactate (Haldol Inj) 5 mg PRN Q4HRS PRN IVP Hallucinatns,Confusn,Delirium; Start 11/16/19 at 12:15 Diphenhydramine HCl (Benadryl) 25 mg PRN Q15MIN PRN IVP EPS symptoms 2'Haldol admin; Start 11/16/19 at 12:15 Clonidine HCl (Catapres) 0.1 mg PRN Q1HR PRN PO SBP > 180 or DBP > 100, MRX3; Start 11/16/19 at 12:15 Lorazepam (Ativan Inj) 2 mg PRN Q15MIN PRN IV SEE COMMENTS; Start 11/16/19 at 12:15; Stop 11/16/19 at 12:08; Status DC Lorazepam (Ativan Inj) 4 mg PRN Q15MIN PRN IV SEE COMMENTS; Start 11/16/19 at 12:15; Stop 11/16/19 at 12:08; Status DC Piperacillin Sod/ Tazobactam Sod 3.375 gm/Sodium Chloride 50 ml @ 100 mls/hr Q6HRS IV Last administered on 11/17/19at 05:58; Start 11/16/19 at 14:00 Acetaminophen (Tylenol) 650 mg PRN Q4HRS PRN PO MILD PAIN / TEMP > 100.3'F Last administered on 11/16/19at 21:26; Start 11/16/19 at 21:15 Active Scripts Active Reported Colace (Docusate Sodium) 100 Mg Capsule 1 Cap PO BID 30 Days Multivitamins (Multivitamin) 1 Each Capsule 1 Cap PO DAILY 30 Days Vitals/I & O Vital Sign - Last 24 Hours 11/16/19 11/16/19 11/16/19 11/16/19 08:45 11:00 15:00 19:00 Temp 98.8 100.4 101.1 98.8 100.4 101.1 Pulse 87 89 80 Resp 16 16 18 B/P (MAP) 117/60 (79) 119/76 (90) 106/69 (81) Pulse Ox 96 99 95 95 O2 Delivery Room Air Room Air Room Air Room Air 11/16/19 11/16/19 11/17/19 20:00 23:00 03:35 Temp 100.1 99.0 100.1 99.0 Pulse 62 70 Resp 17 21 B/P (MAP) 112/70 (84) 93/59 (70) Pulse Ox 93 93 O2 Delivery Room Air Room Air Room Air Intake and Output 0 11/16/19 11/16/19 11/17/19 15:00 23:00 07:00 Intake Total 50 ml 1100 ml Output Total 1800 ml 50 ml Balance -1750 ml 1050 ml Justicifation of Admission Dx: Justifications for Admission: Justification of Admission Dx: Yes FULBRIGHT,UVADLO W MD Nov 17, 2019 08:26
--- NOTE | 2019-11-17 09:13 | NUR ---
This RN was called into room for patients cassidy leaking. night shift supervisor RN also relayed that information and tried to reposition by deflating and reinflating balloon. This RN bladder scanned patient and found 2440 mls retained. Spoke with Dr. Ortega and was told to remove cassidy and place a new one. When the cassidy was dc'd there was a large mucous plug stuck to tip of catheter. New 16F cassidy was inserted and 3000 mls of urine output.
[2019-11-17] MEDS: FOLIC ACID 1 MG TABLET. PO SCH (10:18)
[2019-11-17] MEDS: THIAMINE INJ 100 MG in IV DEXTROSE 5% 50 ML IV SCH (10:18)
[2019-11-17 11:30] VITALS: BP 107/86
[2019-11-17] MEDS: FLUCONAZOLE 200MG/100ML PREMIX 100 ML IV SCH (14:05)
[2019-11-17 15:15] VITALS: BP 144/62
--- NOTE | 2019-11-17 19:29 | RAD ---
Exam: Ultrasound renal complete Indication: Hydronephrosis Technique: Real-time grayscale and color Doppler images of the kidneys were obtained by the department electrical/instrument technician. Comparisons: 11/16/2019 FINDINGS: Right kidney measures 10.6 cm in length. No hydronephrosis. Left kidney measures 13.4 cm in length. Mild left-sided hydronephrosis. Mcmahon balloon is noted in the bladder. Bladder is partially distended with debris. Visualized portions of the aorta are unremarkable. IMPRESSION: 1. Mild left-sided hydronephrosis. No right-sided hydronephrosis. Overall significantly improved from prior CT. 2. Mcmahon balloon in the bladder which is partially distended with echogenic material. Electronically signed by: Cass Herring MD (11/17/2019 7:26 PM) [id number]
[2019-11-17] MEDS: LACTOBACILLUS RHAMNOSUS GG 1 CAPSULE. PO SCH (19:48)
[2019-11-17 20:30] VITALS: BP 121/86
[2019-11-17 23:00] VITALS: BP 135/82
[2019-11-18] MEDS: PIPERACILLIN/TAZOBACTAM 3.375 GM in IV NORMAL SALINE 50ML 50 ML IV SCH ×3 (00:48→13:43)
[2019-11-18 03:00] VITALS: BP 103/66
[2019-11-18 07:00] VITALS: BP 117/75
--- NOTE | 2019-11-18 10:02 | NUR ---
SW following. Discussed with RN, pt from home, room air, regular diet, COVID-19 negative. Pt currently on IV zosyn. Med Assist following for self pay status. SW will continue to follow for any discharge planning needs.
[2019-11-18 10:36] VITALS: BP 122/78
[2019-11-18] MEDS: LACTOBACILLUS RHAMNOSUS GG 1 CAPSULE. PO SCH (11:10)
[2019-11-18] MEDS: FOLIC ACID 1 MG TABLET. PO SCH (11:10)
[2019-11-18] MEDS: THIAMINE INJ 100 MG in IV DEXTROSE 5% 50 ML IV SCH (11:12)
--- NOTE | 2019-11-18 11:50 | PDOC ---
[employer] PROGRESS NOTE Date of Service DOS: DATE: 11/18/19 TIME: 11:48 Chief Complaint Chief Complaint UTI (urinary tract infection) PUI Bladder obstruction Abdominal pain Fever marked enlargement of the urinary bladder. Mild wall thickening may be due to chronic bladder outlet obstruction. severe left and mild right hydroureteronephrosis. Finding probably secondary to HERRON Prostatomegaly. Hepatic cirrhosis. Stable splenomegaly. Heavy alcohol intake , ? drug use, TOBACCO ABUSE DISORDER Cholelithiasis. Unchanged periumbilical hernia. severe protein-caloric malnutrition sepsis History of Present Illness History of Present Illness 11/18/2019 Patient seen and examined He appears to be at his baseline We will discharged home with a Mcmahon to leg bag and a prescription for Flomax 0.4 p.o. daily I left a prescription for him to follow-up with [facility] in their urology clinic Vitals/I&O Vitals/I&O: Vital Signs Date Time Temp Pulse Resp B/P (MAP) Pulse Ox O2 Delivery O2 Flow Rate FiO2 11/18/19 10:36 97.7 60 18 122/78 (93) 98 Room Air 97.7 I & O 11/17/19 11/17/19 11/18/19 15:00 23:00 07:00 Intake Total 800 ml 400 ml Output Total 4200 ml 1625 ml 800 ml Balance -3400 ml -1225 ml -800 ml Physical Exam General: Alert, Oriented X3, Cooperative, No acute distress Heart: Regular rate, Normal S1 Lungs: Clear Abdomen: Normal bowel sounds, Soft, No tenderness Extremities: No cyanosis Assessment and Plan Assessmemt and Plan Problems Medical Problems: (1) Abdominal pain Status: Acute (2) Bladder obstruction Status: Acute (3) Fever Status: Acute (4) UTI (urinary tract infection) Status: Acute Discharge Comment Review of Relevant I have reviewed the following items aly (where applicable) has been applied. Medications: Current Medications Medications (Trade) Dose Ordered Sig/Natalie Route PRN Reason Start Time Stop Time Status Last Admin Dose Admin Fluconazole/ Sodium Chloride 100 ml @ 100 mls/hr Q24H IV 11/17/19 14:00 11/17/19 14:05 Lactobacillus Rhamnosus (Culturelle) 1 cap BID PO 11/17/19 21:00 11/18/19 11:10 Justifications for Admission Other Justification VICKY DONALDSON K III DO Nov 18, 2019 11:50
[2019-11-18] MEDS: FLUCONAZOLE 200MG/100ML PREMIX 100 ML IV SCH (14:00)
[2019-11-18 14:36] VITALS: BP 118/72
--- NOTE | 2019-11-18 18:20 | NUR ---
Discharge instructions given to patient regarding following up with urologist at . Contact info given. Education given over medications, urinary tract infection, and cassidy care. Demonstration and extra supplies given. Patient and family verbalizes understanding.
[2019-11-22] MEDS ORDERED: THIAMINE 100 MG TABLET. PO SCH (09:00)
== END 2019-11-18 18:40 | disposition home or self-care (01) | DRG 871 ==
LOC: ER 00:44 → 6 SOUTH 07:25 → 5 NORTH 11-17 20:54
PROVIDERS: ADMIT Internal Medicine; ATTEND Internal Medicine
DX: A41.9 Sepsis, unspecified organism (principal); E43 Unspecified severe protein-calorie malnutrition; N13.6 Pyonephrosis; F17.210 Nicotine dependence, cigarettes, uncomplicated; K42.9 Umbilical hernia without obstruction or gangrene; K74.60 Unspecified cirrhosis of liver; K80.20 Calculus of gallbladder without cholecystitis without obstruction; N32.0 Bladder-neck obstruction; N40.0 Benign prostatic hyperplasia without lower urinary tract symptoms; Z20.828 Contact with and (suspected) exposure to other viral communicable diseases; Z79.899 Other long term (current) drug therapy; Z68.22 Body mass index [BMI] 22.0-22.9, adult
CPT/HCPCS: 36415; 51702; 71045; 74176; 76770; 80053; 80307; 81001; 82150; 82550; 83605; 83690; 84145; 85025; 85610; 85730; 87040; 87077; 87086; 96361; 96365; 96375; 99285; J1450; J2270; J2405; J2543; J3411; J7030; J7060; G0378; U0003-CS

== ENCOUNTER 2019-12-13 18:33 | Emergency (ER) | payer SELFPAY ==
[~2019-12-13] VITALS: Ht 172.7 cm; Wt 72.7 kg
[~2019-12-13 18:33] MED LIST changes: +DOCU-109 PO; +MULT1CAP15 PO
--- NOTE | 2019-12-13 19:14 | PHYS DOC ---
Past Medical History Past Medical History: No Pertinent History Past Surgical History: No Surgical History Smoking Status: Current Every Day Smoker Alcohol Use: None General Adult EDM: Chief Complaint: CATHETER CHANGE HPI: HPI: Patient understands spoken Cypriot, but is unable to speak Cypriot. His daughter is bedside and is used to obtain majority of history. Pedrito Sorensen is a 64-year-old male who presents for catheter change. His daughter states that his current catheter has been in place for approximately 4 weeks after being placed here for an unspecified abdominal complaint. She states that at the time staff is able to drain approximately 1 gallon of urine that contained pus. At the time he was placed on fluconazole for urinary tract infection, which she has been taking for 4 weeks. She is currently awaiting urology consult at , and has an appointment scheduled for March. The patient currently complains of mild umbilical abdominal pain that feels like a pressure. He denies all other complaints including fever, chills, burning sensation near the catheter, and hematuria. Catheter has been draining well. Review of Systems: Review of Systems: Constitutional: Denies fever or chills Eyes: Denies redness or eye pain HENT: Denies nasal congestion or sore throat Respiratory: Denies cough or shortness of breath Cardiovascular: Denies chest pain or palpitations GI: Denies nausea and vomiting; affirms abdominal pain : Denies dysuria or hematuria; affirms catheter in place Musculoskeletal: Denies back pain or joint pain Integument: Denies rash or skin lesions Neurologic: Denies headache, focal weakness or sensory changes Complete systems were reviewed and found to be within normal limits, except as documented in this note. Allergies: Allergies: Allergies Coded Allergies Type Severity Reaction Last Updated Verified No Known Drug Allergies 10/14/19 No Physical Exam: PE: Constitutional: Well developed, well nourished, no acute distress, non-toxic appearance HENT: Normocephalic, atraumatic Eyes: PERRL, EOMI, conjunctiva normal, no discharge Neck: Normal range of motion, no tenderness, supple Lungs & Thorax: No respiratory distress, equal chest rise and fall Abdomen: Soft, no tenderness to palpation of all quadrants : Cassidy catheter is in place and draining well, leg bag contains a moderate amount of somewhat cloudy urine, no blood is noticed in the bag Skin: Warm, dry, no erythema, no rash Back: No tenderness, no CVA tenderness Extremities: No tenderness, ROM intact, no edema Neurologic: Alert and oriented X 3, normal motor function, normal sensory function, no focal deficits noted Psychologic: Affect normal, judgment normal Current Patient Data: Vital Signs: Vital Signs Date Time Temp Pulse Resp B/P (MAP) Pulse Ox O2 Delivery O2 Flow Rate FiO2 12/13/19 18:36 98.6 78 20 125/75 (92) 97 Room Air 98.6 Course & Med Decision Making: Course & Med Decision Making Patient presented with urinary catheter in place that needed to be changed as described above. The patient's catheter was changed by nursing staff and a urine specimen was collected from this new catheter. Urinalysis revealed presence of urinary tract infection. Chart review was unable to distinguish what antibiotic patient was started on, but is presumed to be fluconazole due to the patient's urinalysis growing yeast. Patient will be discharged with instructions to continue prophylactic antibiotic with Keflex. Patient's daughter states that he has appropriate follow-up care with a free clinic if he has it documented that he has a catheter in currently. We will document this in patient instructions. Dragon Disclaimer: [employer] Disclaimer: This electronic medical record was generated, in whole or in part, using a voice recognition dictation system. Departure Departure Impression: Primary Impression: UTI (urinary tract infection) Qualified Codes: T83.511A - Infection and inflammatory reaction due to indwelling urethral catheter, initial encounter; N39.0 - Urinary tract infection, site not specified Additional Impression: Cassidy catheter in place Disposition: 01 [facility] SELF CARE/HOMELESS Condition: STABLE Referrals: NO PCP (PCP) Patient Instructions: Catheter-Associated Urinary Tract Infection FAQs - ROBLERO, Indwelling Urinary Catheter Care-Brief Additional Instructions: Please follow closely with Urology at for further management of your indwelling cassidy catheter for urinary retention. You may also follow with your family physician. IF you do not have a primary care provider, please call and make an appointment with PCP clinic (see attached sheet) Scripts Cephalexin (KEFLEX) 500 Mg Capsule 500 MG PO TID for 7 Days, #21 CAP Prov: LIZY LIU DO 12/13/19 LIZY LIU DO Dec 13, 2019 19:14
[2019-12-13 20:06] LABS: BILIRUBIN,URINE NEGATIVE (NEG); CLARITY,URINE CLEAR; COLOR,URINE YELLOW; NITRITE,URINE POSITIVE (NEG); PROTEIN,URINE NEGATIVE (NEG-TRACE)
[2019-12-13 20:17] LABS: BACTERIA,URINE MANY /HPF (0-FEW); WBC,URINE TNTC /HPF (0-4)
[2019-12-13] MEDS ORDERED: CEPHALEXIN 250 MG CAPSULE. PO ONE (20:30)
[2019-12-13] MEDS ORDERED: CEPH-264 PO (20:48)
[2019-12-13 20:50] VITALS: BP 120/72
== END 2019-12-13 20:53 | disposition home or self-care (01) ==
LOC: ER 18:33
DX: T83.511A Infection and inflammatory reaction due to indwelling urethral catheter, initial encounter (principal); N39.0 Urinary tract infection, site not specified; R10.33 Periumbilical pain; F17.200 Nicotine dependence, unspecified, uncomplicated
CPT/HCPCS: 51702; 81001; 87086; 99284

== ENCOUNTER 2020-01-17 16:11 | Emergency (ER) | payer SELFPAY ==
[~2020-01-17] VITALS: Ht 177.8 cm; Wt 68.1 kg
[~2020-01-17 16:11] MED LIST changes: +CEPH-264 PO
--- NOTE | 2020-01-17 17:24 | PHYS DOC ---
Past Medical History Past Medical History: Other Additional Past Medical Histor: URINARY RETENTION Past Surgical History: No Surgical History Smoking Status: Current Every Day Smoker Alcohol Use: None Drug Use: None General Adult EDM: Chief Complaint: CATHETER CHANGE HPI: HPI: Patient is a 64 year old male who presents with patient was here on December 13, 2019 for urinary retention and a urinary infection. A Mcmahon catheter was placed and he was sent home follow-up with urology. Patient's daughter states that patient had an appointment for the beginning of February but then they called in patient out until began in March. Patient states that he came in last month and had to have the Mcmahon catheter changed and he still had infection. Patient's daughter states that she called the urology clinic and they stated that they would not change out his catheter and they have to see him first. Patient states he is feeling well and doing well. Patient denies fever, nausea, vomiting, diarrhea, abdominal pain, back pain, dizziness, headache, chest pain, shortness of air, numbness or tingling, focal weakness. Patient denies any pain at this time. Patient has a history of urinary retention and smoker. Review of Systems: Review of Systems: Constitutional: Denies fever or chills. [] Eyes: Denies change in visual acuity. [] HENT: Denies nasal congestion or sore throat. [] Respiratory: Denies cough or shortness of breath. [] Cardiovascular: Denies chest pain or edema. [] GI: Denies abdominal pain, nausea, vomiting, bloody stools or diarrhea. [] : Denies dysuria. +Catheter change. [] Musculoskeletal: Denies back pain or joint pain. [] Integument: Denies rash. [] Neurologic: Denies headache, focal weakness or sensory changes. [] Endocrine: Denies polyuria or polydipsia. [] Lymphatic: Denies swollen glands. [] Psychiatric: Denies depression or anxiety. [] Heart Score: Risk Factors: Risk Factors: DM, Current or recent (<one month) smoker, HTN, HLP, family history of CAD, obesity. Risk Scores: Score 0 - 3: 2.5% MACE over next 6 weeks - Discharge Home Score 4 - 6: 20.3% MACE over next 6 weeks - Admit for Clinical Observation Score 7 - 10: 72.7% MACE over next 6 weeks - Early Invasive Strategies Allergies: Allergies: Allergies Coded Allergies Type Severity Reaction Last Updated Verified No Known Drug Allergies 10/14/19 No Physical Exam: PE: Constitutional: Well developed, well nourished, no acute distress, non-toxic appearance. [] HENT: Normocephalic, atraumatic, bilateral external ears normal, oropharynx moist, no oral exudates, nose normal. [] Eyes: PERRLA, EOMI, conjunctiva normal, no discharge. [] Neck: Normal range of motion, no tenderness, supple, no stridor. [] Cardiovascular:Heart rate regular rhythm, no murmur [] Lungs & Thorax: Bilateral breath sounds clear to auscultation [] Abdomen: Bowel sounds normal, soft, no tenderness, no masses, no pulsatile masses. Urinary catheter intact and draining clear yellow urine. [] Skin: Warm, dry, no erythema, no rash. [] Back: No tenderness, no CVA tenderness. [] Extremities: No tenderness, no cyanosis, no clubbing, ROM intact, no edema. [] Neurologic: Alert and oriented X 3, normal motor function, normal sensory function, no focal deficits noted. [] Psychologic: Affect normal, judgement normal, mood normal. [] Current Patient Data: Vital Signs: Vital Signs Date Time Temp Pulse Resp B/P (MAP) Pulse Ox O2 Delivery O2 Flow Rate FiO2 01/17/20 16:34 98.1 84 16 115/68 (84) 96 Room Air 98.1 EKG: EKG: [] Radiology/Procedures: Radiology/Procedures: [] Course & Med Decision Making: Course & Med Decision Making Pertinent Labs and Imaging studies reviewed. (See chart for details) See HPI. Abdomen is soft and nontender. Urinary catheter is draining clear yellow urine. Ambulatory with a steady gait. Speaks in full complete sentences. Alert and oriented x4. No CVA tenderness. Afebrile. Patient's urinary catheter will be changed here in the ED. I will check his urine for infection. Patient will follow up with urology as scheduled. Patient is hemodynamically stable. Urinalysis shows a urinary tract infection with a positive nitrites. Patient is given Rocephin IV. Mcmahon catheter is changed in the ED. Patient to follow-up with urology as scheduled. Patient remains a symptomatic for urinary tract infection. [] Dragon Disclaimer: Marya Disclaimer: This electronic medical record was generated, in whole or in part, using a voice recognition dictation system. Departure Departure Impression: Primary Impression: UTI (urinary tract infection) Qualified Codes: N39.0 - Urinary tract infection, site not specified Additional Impression: Urinary catheter change required Disposition: 01 DC HOME SELF CARE/HOMELESS Condition: STABLE Referrals: NO PCP (PCP) Patient Instructions: Catheter-Associated Urinary Tract Infection FAQs - ROBLERO, Urinary Tract Infection Additional Instructions: Follow-up with urology as scheduled. Try to get in sooner. Drink plenty of fluids. Take antibiotic as prescribed and with food. You begin running a fever or having nausea vomiting or severe abdominal pain you should go to a facility with urology capabilities as we do not have urology at this facility. Scripts Cephalexin (KEFLEX) 500 Mg Capsule 1 CAP PO BID for 10 Days, #20 CAP 0 Refills Prov: JESICA MENJIVAR APRN 01/17/20 JESICA MENJIVAR APRN Jan 17, 2020 17:24
[2020-01-17 18:30] LABS: BILIRUBIN,URINE NEGATIVE (NEG); CLARITY,URINE CLOUDY; COLOR,URINE YELLOW; NITRITE,URINE POSITIVE (NEG); PH,URINE 6.5 (<5.0-8.0); PROTEIN,URINE 100 mg/dL (NEG-TRACE)
[2020-01-17 18:41] LABS: WBC,URINE >40 /HPF (0-4)
[2020-01-17 18:42] LABS: AMORPHOUS SEDIMENT,UR PRESENT /HPF; BACTERIA,URINE FEW /HPF (0-FEW)
[2020-01-17] MEDS ORDERED: cefTRIAXone IV Push 1 GM VIAL. IVP ONE (18:45)
[2020-01-17 19:02] LABS: BASO % 0 % (0-3); EOS # 0.4 x10^3/uL (0.0-0.7); EOS % 4 % (0-3); HEMATOCRIT 40.6 % (39.0-53.0); HEMOGLOBIN 13.6 g/dL (13.0-17.5); LYMPH # 1.4 x10^3/uL (1.0-4.8); LYMPH % 14 % (24-48); MEAN CORPUSCULAR HEMOGLOBIN 30 pg (25-35); MEAN CORPUSCULAR HGB CONC 34 g/dL (31-37); MEAN CORPUSCULAR VOLUME 88 fL (79-100); MONO # 0.8 x10^3/uL (0.0-1.1); MONO % 8 % (0-9); NEUT # 7.3 x10^3/uL (1.8-7.7); NEUT % 74 % (31-73); PLATELET COUNT 175 x10^3/uL (140-400); RED CELL DISTRIBUTION WIDTH 15.2 % (11.5-14.5); WHITE BLOOD COUNT 9.9 x10^3/uL (4.0-11.0)
[2020-01-17 19:10] LABS: CALCIUM 9.2 mg/dL (8.5-10.1); CREATININE 1.1 mg/dL (0.7-1.3); GFR 67.8; POTASSIUM 4.1 mmol/L (3.5-5.1)
[2020-01-17] MEDS ORDERED: CEPH-264 PO (19:15)
[2020-01-17 19:16] LABS: ALBUMIN 2.7 g/dL (3.4-5.0); ALBUMIN/GLOBULIN RATIO 0.6 (1.0-1.7)
[2020-01-17 20:00] VITALS: BP 109/62
== END 2020-01-17 20:25 | disposition home or self-care (01) ==
LOC: ER 16:11
DX: N39.0 Urinary tract infection, site not specified (principal); Z46.6 Encounter for fitting and adjustment of urinary device; F17.200 Nicotine dependence, unspecified, uncomplicated
CPT/HCPCS: 36415; 51702; 80053; 81001; 83690; 85025; 87086; 96374; 99284; A4314; J0696

== ENCOUNTER 2020-02-17 11:50 | Emergency (ER) | payer SELFPAY ==
[~2020-02-17] VITALS: Ht 152.4 cm; Wt 72.0 kg
[2020-02-17 14:18] VITALS: BP 105/75
--- NOTE | 2020-02-17 14:18 | PHYS DOC ---
Past Medical History Past Medical History: Other Additional Past Medical Histor: URINARY RETENTION Past Surgical History: No Surgical History Smoking Status: Current Every Day Smoker Alcohol Use: None Drug Use: None General Adult EDM: Chief Complaint: URINE CATHETER PROBLEM HPI: HPI: Patient is a 64 year old male who presents with catheter bag leaking. Patient has no other complaints. Patient has a history of urinary retention. He states he does have an upcoming urology appointment. Patient denies abdominal pain, nausea, vomiting, diarrhea, fever, back pain, chest pain, shortness of breath. Review of Systems: Review of Systems: Constitutional: Denies fever or chills. [] Eyes: Denies change in visual acuity. [] HENT: Denies nasal congestion or sore throat. [] Respiratory: Denies cough or shortness of breath. [] Cardiovascular: Denies chest pain or edema. [] GI: Denies abdominal pain, nausea, vomiting, bloody stools or diarrhea. [] : Denies dysuria. + Urinary catheter bag leaking [] Musculoskeletal: Denies back pain or joint pain. [] Integument: Denies rash. [] Neurologic: Denies headache, focal weakness or sensory changes. [] Endocrine: Denies polyuria or polydipsia. [] Lymphatic: Denies swollen glands. [] Psychiatric: Denies depression or anxiety. [] Heart Score: Risk Factors: Risk Factors: DM, Current or recent (<one month) smoker, HTN, HLP, family history of CAD, obesity. Risk Scores: Score 0 - 3: 2.5% MACE over next 6 weeks - Discharge Home Score 4 - 6: 20.3% MACE over next 6 weeks - Admit for Clinical Observation Score 7 - 10: 72.7% MACE over next 6 weeks - Early Invasive Strategies Allergies: Allergies: Allergies Coded Allergies Type Severity Reaction Last Updated Verified No Known Drug Allergies 10/14/19 No Physical Exam: PE: Constitutional: Well developed, well nourished, no acute distress, non-toxic appearance. [] HENT: Normocephalic, atraumatic, bilateral external ears normal, oropharynx moist, no oral exudates, nose normal. [] Eyes: PERRLA, EOMI, conjunctiva normal, no discharge. [] Neck: Normal range of motion, no tenderness, supple, no stridor. [] Cardiovascular:Heart rate regular rhythm, no murmur [] Lungs & Thorax: Bilateral breath sounds clear to auscultation [] Abdomen: Bowel sounds normal, soft, no tenderness, no masses, no pulsatile masses. [] Skin: Warm, dry, no erythema, no rash. [] Back: No tenderness, no CVA tenderness. [] Extremities: No tenderness, no cyanosis, no clubbing, ROM intact, no edema. [] Neurologic: Alert and oriented X 3, normal motor function, normal sensory function, no focal deficits noted. [] Psychologic: Affect normal, judgement normal, mood normal. Normal physical exam [] Current Patient Data: Vital Signs: Vital Signs Date Time Temp Pulse Resp B/P (MAP) Pulse Ox O2 Delivery O2 Flow Rate FiO2 02/17/20 13:16 97.9 64 14 126/77 (93) 96 Room Air 97.9 EKG: EKG: [] Radiology/Procedures: Radiology/Procedures: [] Course & Med Decision Making: Course & Med Decision Making Pertinent Labs and Imaging studies reviewed. (See chart for details) See HPI. Urinary catheter is draining yellow urine. Urinary bag is changed. Skin pink warm and dry. Afebrile. Speaks in full complete sentences. Ambulatory with a steady gait. Abdomen is soft and nontender. There is no CVA tenderness. Alert and oriented x4. [] Dragon Disclaimer: Marya Disclaimer: This electronic medical record was generated, in whole or in part, using a voice recognition dictation system. Departure Departure Impression: Primary Impression: Urinary catheter change required Disposition: 01 DC HOME SELF CARE/HOMELESS Condition: STABLE Referrals: NO PCP (PCP) Patient Instructions: Indwelling Urinary Catheter Care-Brief Additional Instructions: Follow-up with your urologist as soon as possible. Drink plenty of fluids. JESICA MENJIVAR [employer]SEM[employer] MACHINE OPERATOR Feb 17, 2020 14:17
== END 2020-02-17 14:40 | disposition home or self-care (01) ==
LOC: ER 11:50
DX: R33.9 Retention of urine, unspecified (principal); F17.200 Nicotine dependence, unspecified, uncomplicated
CPT/HCPCS: 99281; 99283

== ENCOUNTER 2020-03-18 19:04 | Emergency (ER) | payer SELFPAY ==
[~2020-03-18] VITALS: Ht 172.7 cm; Wt 73.0 kg
--- NOTE | 2020-03-18 20:14 | PHYS DOC ---
Past Medical History Past Medical History: Other Additional Past Medical Histor: URINARY RETENTION (LIZY COCHRAN APRN) Past Surgical History: No Surgical History (LIZY COCHRAN APRN) Smoking Status: Current Every Day Smoker Alcohol Use: None Drug Use: None (LIZY COCHRAN APRN) General Adult EDM: Chief Complaint: URINARY RETENTION HPI: HPI: Patient is a 65 year old male presents emergency department stating that he was at his urology appointment [facility] and was told that he no longer needed an indwelling Mcmahon catheter, patient states he was given instructions on how to straight cath. Patient states that at home he was unable to do it correctly and he is not sure what to do. Patient reports that he feels like there is a lot of urine in his bladder. Patient states the last time he urinated was was when his catheter was in early this morning when he was at his urology appointment. Patient reports that he has equipment at home to self cath. Patient denies any recent fever chills, nausea, vomiting, diarrhea, or urinary incontinence. Patient denies seeing any blood in his urine. Patient denies any other physical complaints or physical concerns. (LIZY COCHRAN APRN) Review of Systems: Review of Systems: 14 body systems of review of systems have been reviewed. See HPI for pertinent positives and negative responses, otherwise all other systems are negative, nonpertinent or noncontributory. (LIZY COCHRAN APRN) Heart Score: Risk Factors: Risk Factors: DM, Current or recent (<one month) smoker, HTN, HLP, family history of CAD, obesity. Risk Scores: Score 0 - 3: 2.5% MACE over next 6 weeks - Discharge Home Score 4 - 6: 20.3% MACE over next 6 weeks - Admit for Clinical Observation Score 7 - 10: 72.7% MACE over next 6 weeks - Early Invasive Strategies (LIZY COCHRAN APRN) Allergies: Allergies: Allergies Coded Allergies Type Severity Reaction Last Updated Verified No Known Drug Allergies 10/14/19 No (LIZY COCHRAN APRN) Physical Exam: PE: Constitutional: Well developed, well nourished, no acute distress, non-toxic appearance. HENT: Normocephalic, atraumatic, bilateral external ears normal, oropharynx moist, no oral exudates, nose normal. Eyes: PERRLA, EOMI, conjunctiva normal, no discharge. Neck: Normal range of motion, no tenderness, supple, no stridor. Cardiovascular:Heart rate regular rhythm, no murmur Lungs & Thorax: Bilateral breath sounds clear to auscultation Abdomen: Bowel sounds normal, soft, no tenderness, no masses, no pulsatile mass es. Skin: Warm, dry, no erythema, no rash. Back: No tenderness, no CVA tenderness. Extremities: No tenderness, no cyanosis, no clubbing, ROM intact, no edema. Neurologic: Alert and oriented X 3, normal motor function, normal sensory function, no focal deficits noted. Psychologic: Affect normal, judgement normal, mood normal. : Pain with palpation at symphysis pubis area, a 18 Albanian indwelling Mcmahon catheter was placed, drained 1300 cc clear yellow urine. (LIZY COCHRAN APRN) Current Patient Data: Vital Signs: Vital Signs Date Time Temp Pulse Resp B/P (MAP) Pulse Ox O2 Delivery O2 Flow Rate FiO2 03/18/20 19:08 98.4 98 24 146/112 (123) 93 Room Air 98.4 (LIZY COCHRAN APRN) EKG: EKG: [] (LIZY COCHRAN APRN) Radiology/Procedures: Radiology/Procedures: [] (LIZY COCHRAN APRN) Course & Med Decision Making: Course & Med Decision Making Pertinent Labs and Imaging studies reviewed. (See chart for details) 65-year-old male presents to the emergency department claiming that he was unable to self cath himself at home as directed by his urology clinic at . Dusty butt's physical exam was concerning for urinary retention, a 18 Albanian indwelling Mcmahon was placed. Approximately 1300 cc clear yellow urine was drained from the Mcmahon bag. Patient states he had relief from lower abdominal pressure after his urine was drained. Plan: We will remove indwelling Mcmahon catheter and wait approximately 1 hour and give bedside teaching on self-catheterization for the promotion of prevention of urinary tract infections caused by long-term indwelling catheterization. ED nursing staff performed bedside teaching of self catheterization, per ED nurse report, patient cath himself successfully without difficulty. Patient gave verbal understanding of self cath procedure, is more comfortable with doing this procedure now, patient was discharged home, patient gave verbal understanding of discharge home instructions, self catheterization use, will follow up with his urology clinic as directed by them, return to ER precautions and concerns, had no further questions or concerns were discharged home without incident. Impression: #1 urinary retention #2 learning deficit about self-catheterization (LIZY COCHRAN APRN) Course & Med Decision Making I oversaw on the above date of service of this patient and discussed the care with the [employer]IL. I agree with the findings, plan of care, and disposition as documented. (MARYJANE ANTHONY DO) Marya Disclaimer: Marya Disclaimer: This electronic medical record was generated, in whole or in part, using a voice recognition dictation system. (LIZY COCHRAN APRN) Departure Departure Impression: Primary Impression: Self-catheterizes urinary bladder Additional Impression: Urinary retention Disposition: 01 DC HOME SELF CARE/HOMELESS Condition: GOOD Referrals: NO PCP (PCP) Additional Instructions: Continue to self catheterize as directed by your urology doctor. Follow-up with your urology clinic as directed, return to the emergency department for worsening symptoms or other concerns. EMERGENCY DEPARTMENT GENERAL DISCHARGE INSTRUCTIONS Thank you for coming to [facility] Emergency Department (ED) today and trusting us with you care. We trust that you had a positive experience in our Emergency Department. If you wish to speak to the department management, you may call the Director at [phone]. YOUR FOLLOW UP INSTRUCTIONS ARE FOLLOWS: 1. Do you have a private Doctor? If you do not have a private doctor, please ask for a resource list of physicians or clinics that may be able to assist you with follow up care. 2. The Emergency Physicain has interpreted your x-rays. The X-Ray specialist will also review them. If there is a change in the findings, you will be notified in 48 hours when at all possible. 3. A lab test or culture has been done, your results will be reviewed and you will be notified if you need a change in treatment. ADDITIONAL INSTRUCTIONS AND INFORMATION: 1. Your care today has been supervised by a physician who is specially trained in emergency care. Many problems require more than one evaluation for a complete diagnosis and treatment. We recommend that you schedule your follow up appointment as recommended to ensure complete treatment of you illness or injury. If you are unable to obtain follow up care and continue to have a problem, or if your condition worsens, we recommend that you return to the ED. 2. We are not able to safely determine your condition over the phone nor are we able to give sound medical advice over the phone. For these safety reasons, if you call for medical advice we will ask you to come to the ED for further evaluation. 3. If you have any questions regarding these discharge instructions please call the ED at [phone]. SAFETY INFORMATION: In the interest of safety, wellness, and injury prevention; we encourage you to wear your sealbelt, if you smoke; quite smoking, and we encourage family to use a protective helmet for bicycling and other sporting events that present an increased risk for head injury. IF YOUR SYMPTOMS WORSEN OR NEW SYMPTOMS DEVELOP, OR YOU HAVE CONCERNS ABOUT YOUR CONDITION; OR IF YOUR CONDITION WORSENS WHILE YOU ARE WAITING FOR YOUR FOLLOW UP MANUEL OINTMENT; EITHER CONTACT YOUR PRIMARY CARE DOCTOR, THE PHYSICIAN WHOSE NAME AND NUMBER YOU WERE GIVEN, OR RETURN TO THE ED IMMEDIATELY. LIZY COCHRAN APRN Mar 18, 2020 20:14 MARYJANE ANTHONY DO Mar 21, 2020 00:21
[2020-03-18 21:30] VITALS: BP 112/68
== END 2020-03-18 21:45 | disposition home or self-care (01) ==
LOC: ER 19:04
DX: R33.9 Retention of urine, unspecified (principal); F17.200 Nicotine dependence, unspecified, uncomplicated
CPT/HCPCS: 51702; 99285